=== PATIENT | male | born 1950 | race Caucasian/White ===

== ENCOUNTER 2017-08-09 21:30 | Inpatient (IN) ==
[2017-08-09] MEDS ORDERED: Nitroglycerin 0.4 MG TAB.SUBL SL ONE (21:41)
--- NOTE | 2017-08-09 21:41 | Emergency Department Note ---
Disposition Clinical Impression: Chest pain Qualifiers: Chest pain type: unspecified Qualified Code(s): R07.9 - Chest pain, unspecified Disposition: Admitted As Inpatient Condition: Good [facility]errals: [facility] [Primary Care Provider[facility] - Forms: ED Satisfaction Letter Time of Disposition: 23:42 Chest Pain HPI - General Chief Complaint: ED Chest Pain Stated Complaint: chest pain Time Seen by Provider: 08/09/17 21:37 Source: patient, EMS Mode of arrival: EMS Limitations: no limitations Vital Signs Reviewed: Yes Nursing Notes Reviewed: Yes - History of Present Illness HPI Narrative: Patient is a 66-year-old male with past medical history of several previous cardiac stents, 2 previous ME, most recent stent was 30 days ago at [facility]. He also has a history of hypertension, diabetes, high cholesterol. Denies any smoking history. Presents today via EMS due to chest pain. He says that the chest pain started about 45 minutes ago, described as a dull ache in the center of his chest with no radiation. It started suddenly while at rest. was a 6/10 initially, increased to a 9/10 in the squad, and then was given nitroglycerin and it dropped back to a 6/10. He was also given aspirin 325mg. Denies any associated nausea, vomiting, sweating. Also admits to shortness of breath. Denies any worsening of the chest pain with deep breath in and out. Denies any unilateral leg swelling or calf pain, no other recent surgeries except for stent placement a month ago. No previous history of DVT or PE. - Related Data Allergies Allergy/AdvReac Type Severity Reaction Status Date / Time codeine Allergy Anaphylaxis Verified 08/09/17 21:58 IV dye AdvReac Vomiting Uncoded 08/09/17 21:58 All systems ED: reviewed and negative except as stated. Constitutional: Denies: fever Cardiovascular: Reports: chest pain Respiratory: Reports: dyspnea. Denies: cough, wheezes Gastrointestinal: Denies: abdominal pain, nausea, vomiting, diarrhea Genitourinary: Denies: urgency, dysuria, frequency, hematuria Neurological: Denies: weakness, numbness, paresthesias Chest Pain PMH - Past Medical History Medical history: Reports: diabetes, hyperlipidemia, hypertension, myocardial infarction, other Physical Exam - General Limitations: no limitations General appearance: alert, in no apparent distress - Head Head exam: atraumatic, normocephalic, normal inspection - Eye Eye exam: Present: normal appearance, PERRL, EOMI - ENT ENT exam: normal exam, normal oropharynx, mucous membranes moist - Neck Neck exam: Present: normal inspection, full ROM, trachea midline - Chest Chest inspection: Present: normal inspection, symmetric chest wall rise. Absent : tenderness, rash - Respiratory Respiratory exam: Present: normal lung sounds bilaterally - Cardiovascular Cardiovascular exam: Present: regular rate, normal rhythm, normal heart sounds - Abdominal Exam Abdominal exam: Present: soft, Non-Tender. Absent: tenderness, distention, guarding, rebound, rigidity - Extremities Exam Extremities exam: Present: normal inspection, full ROM. Absent: tenderness, pedal edema - Neurological Exam Neurological exam: Present: alert, oriented X3 - Psychiatric Psychiatric exam: Present: normal affect, normal mood - Skin Skin exam: Present: warm, dry, intact, normal color Course Course Narrative: Patient had no reproducible tenderness of the chest. Lungs were clear to auscultation, abdomen soft and nontender. No major swelling or calf pain of lower extremities. Patient is very high risk for ACS at this time. We will give the patient additional nitroglycerin and, if this improves his pain, we will start a nitro drip. Also obtain EKG, chest x-ray, troponin level. We will recommend admission even if workup is negative due to extensive cardiac history and recent stent placement. 23:25 troponin negative. No acute EKG changes. Chest x-ray negative for any acute cardiopulmonary process. Discussed results and case with the patient and recommendation for admission for trending troponins. He has requested that he continue his care here instead of [facility]. 23:41 hospitalist requested that I speak with cardiology. Contacted Dr. Hernandez , discussed presentation, symptoms, imaging results with him. He requested that we start the patient on heparin and he will act as a consult for the patient in the morning. No other intervention at this time. No contraindications to starting heparin at this time. Chest X-Ray 08/09/17 21:41 IMPRESSION: No acute cardiopulmonary disease. Mild dependent left basilar atelectasis. D/ / Naldo Wallace MD / Naldo Wallace MD Interpreting Provider: Naldo Wallace MD Vital Signs Temperature 97.8 F 08/09/17 21:33 Pulse Rate 67 08/09/17 21:33 Respiratory Rate 16 08/09/17 21:33 Blood Pressure 151/108 08/09/17 21:33 O2 Sat by Pulse Oximetry 99 08/09/17 21:33 Temperature 97.8 F 08/09/17 21:33 Pulse Rate 64 08/09/17 21:58 Respiratory Rate 16 08/09/17 21:58 Blood Pressure 146/62 08/09/17 21:58 O2 Sat by Pulse Oximetry 98 08/09/17 21:58 Oxygen Delivery Oxygen Delivery Room Air Chest Pain - MDM Narrative Medical decision making narrative: Patient had no reproducible tenderness of the chest. Lungs were clear to auscultation, abdomen soft and nontender. No major swelling or calf pain of lower extremities. Patient is very high risk for ACS at this time. We will give the patient additional nitroglycerin and, if this improves his pain, we will start a nitro drip. Also obtain EKG, chest x-ray, troponin level. We will recommend admission even if workup is negative due to extensive cardiac history and recent stent placement. 23:25 troponin negative. No acute EKG changes. Chest x-ray negative for any acute cardiopulmonary process. Discussed results and case with the patient and recommendation for admission for trending troponins. He has requested that he continue his care here instead of [facility]. 23:41 hospitalist requested that I speak with cardiology. Contacted Dr. Hernandez , discussed presentation, symptoms, imaging results with him. He requested that we start the patient on heparin and he will act as a consult for the patient in the morning. No other intervention at this time. No contraindications to starting heparin at this time. - Medical Records Medical records reviewed: Yes I reviewed the patient's medical records. - Lab Data Lab results reviewed: Yes I reviewed the patient's lab results. Result diagrams: 08/09/17 21:56 08/09/17 21:56 Lab Results 08/09/17 08/09/17 08/09/17 Range/Units 21:56 21:56 21:56 WBC 6.9 (4.3-11.1) K/mcL RBC 3.63 L (4.19-5.50) M/mcL Hgb 10.8 L (12.9-16.9) g/dL Hct 32.6 L (37.5-50.1) % MCV 89.8 (83.0-100.0) fL MCH 29.8 (28.0-33.3) pg MCHC 33.1 (31.6-35.5) g/dL RDW 13.8 (11.5-14.5) % Plt Count 218 (140-400) K/mcL MPV 10.8 (9.4-12.4) fL Immature Gran % 0.3 (0-4) % Seg Neutrophils % 65.1 % Lymphocytes % 20.9 % Monocytes % 8.4 % Eosinophils % 4.9 % Basophils % 0.4 % Neutrophils # 4.5 (1.6-8.9) K/mcL Lymphocytes # 1.4 (0.6-4.6) K/mcL Monocytes # 0.6 (0.0-1.3) K/mcL Eosinophils # 0.3 (0.0-0.6) K/mcL Basophils # 0.0 (0.0-0.2) K/mcL PT 11.2 (9.4-12.1) Seconds INR 1.0 APTT 30.4 (26.0-36.0) Seconds Sodium 134 L (136-145) mEq/L Potassium 4.0 (3.5-5.1) mEq/L Chloride 102 (98-107) mEq/L Carbon Dioxide 22 L (23-29) mEq/L BUN 15 (8-23) mg/dL Creatinine 0.80 (0.70-1.30) mg/dL Est GFR ( Amer) > 60 (> 60) Est GFR (Non-Af Amer) > 60 (> 60) BUN/Creatinine Ratio 19 (6-26) Glucose 339 H (70-105) mg/dL Calculated Osmolality 292 (280-300) Calcium 8.5 L (8.6-10.3) mg/dL Troponin I < 0.03 (< 0.04) ng/mL - Radiology Data Radiology results reviewed: Yes I reviewed the patient's radiology results. - EKG Data EKG attestation: Yes I reviewed and interpreted this EKG. EKG results narrative: 08/09/2017 at 21:35. Normal sinus rhythm. Rate 68. MT 148. QRS 94. QTC 398. Normal axis. No acute ST elevation or depression. No previous EKG for comparison Heart Score - Score History: Highly Suspicious EKG: Normal Age: Greater than 65 Risk Factors: Equal/Greater than 3 risk factor or history of atherosclerotic disease Troponin: Less than normal limit HEART Score Total: 6 S.B.A.R. - Elham.[email or web address] Situation: Demographics, MOA Background: Presenting Complaint, Relevant PMH, Meds, & Allergies Assessment: Vital Signs, Course and respsone to treatment, Exam Concerns, Patient/Family Expectation, Pertinant Lab Results Recommendation: Barrier(s) to disposition, Recommendation based on pending studies, treatments, or consults S.B.A.Neelima Report Given to: Dr. Mau Colindres Repor Time: 23:42
--- NOTE | 2017-08-09 21:56 | Emergency Department Note ---
START Narrative - START START: I examined this patient and my medical decision-making was reviewed with the Resident Physician. I agree with the documented findings, disposition and treatment plan as described except to the extent set forth below. 66-year-old male presents emergency room for chest pain. Started 45 minutes prior to arrival. He follows with [facility]. History of 7 stents. EKG is unremarkable. We are awaiting lab work. Possible admission versus transfer. Patient states he might like to go home if all his lab work is unremarkable. We will discuss with him at that time. His vitals are stable.
[2017-08-09 22:06] LABS: Basophils % 0.4 %; Eosinophils # 0.3 K/mcL (0.0-0.6); Eosinophils % 4.9 %; Hematocrit 32.6 % (37.5-50.1); Hemoglobin 10.8 g/dL (12.9-16.9); Immature Granulocytes % 0.3 % (0-4); Lymphocytes # 1.4 K/mcL (0.6-4.6); Lymphocytes % 20.9 %; Mean Corpuscular HGB Conc 33.1 g/dL (31.6-35.5); Mean Corpuscular Hemoglobin 29.8 pg (28.0-33.3); Mean Corpuscular Volume 89.8 fL (83.0-100.0); Mean Platelet Volume 10.8 fL (9.4-12.4); Monocytes # 0.6 K/mcL (0.0-1.3); Monocytes % 8.4 %; Neutrophils # 4.5 K/mcL (1.6-8.9); Platelet Count 218 K/mcL (140-400); Red Blood Count 3.63 M/mcL (4.19-5.50); Red Cell Distribution Width 13.8 % (11.5-14.5); Segmented Neutrophils % 65.1 %
[2017-08-09 22:12] LABS: Prothrombin Time 11.2 Seconds (9.4-12.1)
[2017-08-09 22:15] LABS: Activated Partial Thrombo Time 30.4 Seconds (26.0-36.0)
[2017-08-09 22:27] LABS: BUN/Creatinine Ratio 19 (6-26); Blood Urea Nitrogen 15 mg/dL (8-23); Calcium 8.5 mg/dL (8.6-10.3); Carbon Dioxide 22 mEq/L (23-29); Chloride 102 mEq/L (98-107); Glucose 339 mg/dL (70-105); Osmolality,Calculated 292 (280-300); Sodium 134 mEq/L (136-145); Troponin I < 0.03 ng/mL (< 0.04); eGFR For African Americans > 60 (> 60); eGFR For Non-African Americans > 60 (> 60)
[2017-08-09] MEDS ORDERED: *HR* FentaNYL (PF) 100 MCG/2 ML VIAL IVP ONE (23:18)
[2017-08-09] MEDS ORDERED: *HR* Heparin 5,000 UNIT/ML VIAL IVP PRN ×2 (23:40)
[2017-08-09] MEDS ORDERED: *HR* Heparin 5,000 UNIT/ML VIAL IVP ONE (23:40)
[2017-08-09] MEDS ORDERED: Heparin 25,000 UNIT/500 ML D5W 25,000 UNIT/500 ML BAG IVC SCH (23:45)
[2017-08-09] MEDS ORDERED: Acetaminophen 325 MG TABLET PO PRN (23:46)
[2017-08-09] MEDS ORDERED: Naloxone 0.4 MG/ML INJ IVP PRN (23:46)
--- NOTE | 2017-08-09 23:48 | Internal Med History&Physical ---
Date of Encounter: 08/10/17 Time of Encounter: 23:42 Internal Medicine - H&P: HPI Chief complaint: Chest pain Admitted From: Emergency Dept Plans for Post Hospital Care: Home History of present illness: Mr. Taylor is a 66 year old male with past medical history of coronary artery disease with multiple stents (tells me he has 19-20 stents placed at different times) most recent stent was 40 days ago at [facility]. He also has a history of hypertension, diabetes, high cholesterol. Denies any smoking history. He presented to the ED today via EMS due to chest pain. He says that the chest pain started about 45 minutes ago prior to arrival here, described as a dull ache in the center of his chest with no radiation. It started suddenly while at rest. was a 6/10 initially, increased to a 9/10 later on in route to the hospital, and then was given nitroglycerin and it dropped back to a 6/10. He was also given aspirin 325mg. reports associated shortness of breath. Denies any associated nausea, vomiting, sweating. Says this is similar to chest pain he has had previously when he needed stents. He says he was at [facility] 40 days ago and a stent was placed. 10 days later he went again with and had another [facility] and no stents were placed that time. He saw different cardiologists over the years. Recently he says he saw a Theatre Instructor here in [place] but he couldnt tell me who. When I mentioned a list of our cardiologists' names, he said Dr. Hernandez sounds like the aircraft engine installer he saw recently. In the emergency department the patient was hemodynamically stable. EKG with no acute ST or T-wave changes. Chest x-ray with no acute findings. First set of cardiac enzymes are not elevated. Laboratory workup with hemoglobin of 10.8 with nothing to compare to in the past. Patient denies any bleeding. Glucose was 339. Patient was given nitroglycerin with some relief again in the ED. Was also given fentanyl. Cardiology were consulted and the ED and recommended a heparin drip and the patient will be seen by them in the morning. Denies headache, blurry vision, abdominal pain, constipation, diarrhea , urinary symptoms, or neurological symptoms. Past Med Surg Social Fam HX - Past Medical History Medical history: diabetes, hyperlipidemia, hypertension, myocardial infarction, other Psychiatric history: no psych history - Social History Smoking Status: Never smoker Smokeless Tobacco Status: No Alcohol use: none Drug use: none Internal Medicine - H&P: Meds 3 Allergy/AdvReac Type Severity Reaction Status Date / Time codeine Allergy Anaphylaxis Verified 08/09/17 21:58 heparin Allergy Hives Verified 08/09/17 23:54 IV dye AdvReac Vomiting Uncoded 08/09/17 21:58 All Systems PM: A 10-system review of systems was performed and is negative for pertinent findings except as documented above in the HPI. Review of systems: All systems reviewed are negative except for as mentioned above - Constitutional Vitals: Temp Pulse Resp BP Pulse Ox 97.8 F 64 16 146/62 98 08/09/17 21:33 08/09/17 21:58 08/09/17 21:58 08/09/17 21:58 08/09/17 21:58 Exam: GEN: NAD HEENT: AT, NC, No cyanosis, oral mucosa is moist, No JVD Lymphatics: No lymphadenoapthy Eyes: Extrocular muscles intact, anicteric CVS:RRR. S1, S2, No m/r/g RESP: CTAB ABD: Soft, NT, ND, +BS EXT: No edema, No rashes, 2+ DP NEURO: Nonfocal, CN II-XII intact, No focal motor or sensory deficits Psych: Cooperative, Not anxious or depressed Internal Med - H&P Results - Labs CBC & Chem 7: 08/09/17 21:56 08/09/17 21:56 Labs: Short CBC 08/09/17 Range/Units 21:56 WBC 6.9 (4.3-11.1) K/mcL Hgb 10.8 L (12.9-16.9) g/dL Hct 32.6 L (37.5-50.1) % Plt Count 218 (140-400) K/mcL Neutrophils # 4.5 (1.6-8.9) K/mcL BMP 08/09/17 21:56 Sodium 134 L Potassium 4.0 Chloride 102 Carbon Dioxide 22 L BUN 15 Creatinine 0.80 Glucose 339 H Calcium 8.5 L Cardiac Enzymes 08/09/17 Range/Units 21:56 Troponin I < 0.03 (< 0.04) ng/mL - Impressions ITS Impressions Chest X-Ray 08/09/17 21:41 IMPRESSION: No acute cardiopulmonary disease. Mild dependent left basilar atelectasis. D/ / Naldo Wallace MD / Naldo Wallace MD Interpreting Provider: Naldo Wallace MD - Assessment and plan (1) Unstable angina Current Visit: Yes Status: Acute Assessment and plan: Patient is with chest pain about 30 days after recent stent placement. I have asked the ED staff to consult with cardiology in the ED as the patient does not want to be transferred to [facility] for this. The ED staff told me that they spoke to Dr. Hernandez who recommended a heparin drip and they will see the patient in the morning for further cardiac recommendations. Patient says he breaks into hives on heparin so will put him on Lovenox. In the meantime will order nitroglycerin SL prn and if needed we will do a nitro drip. Resume cardiac meds. Telemetry. Trend cardiac enzymes. Check A1c and lipid panel. Nothing by mouth after midnight. Obtain records from [facility]. (2) CAD (coronary artery disease) Current Visit: Yes Status: Acute Assessment and plan: Resume all cardiac meds. Obtain records from [facility] Qualifiers: Coronary Disease-Associated Artery/Lesion type: [place] artery [place] vs. transplanted heart: [place] heart Associated angina: with unstable angina Qualified Code(s): I25.110 - Atherosclerotic heart disease of [place] coronary artery with unstable angina pectoris (3) Diabetes mellitus Current Visit: Yes Status: Acute Assessment and plan: insulin sliding scale. Accu-Cheks. Qualifiers: Diabetes mellitus type: type 2 Diabetes mellitus fpc insulin use: without exterminator use Diabetes mellitus complication status: without complication Qualified Code(s): E11.9 - Type 2 diabetes mellitus without complications (4) HTN (hypertension) Current Visit: Yes Status: Acute Assessment and plan: Resume home antihypertensive Qualifiers: Hypertension type: essential hypertension Qualified Code(s): I10 - Essential (primary) hypertension (5) DVT prophylaxis Current Visit: Yes Status: Acute Assessment and plan: Lovenox - Time Spent With Patient Total time spent is greater than 50% in coordination of care (as documented) at patient's floor/unit and/or counseling patient:
[2017-08-09] MEDS ORDERED: *HR* Dextrose 50 % in Water (Syg) 50 ML SYRINGE IVP PRN (23:51)
[2017-08-09] MEDS ORDERED: Dextrose Gel 15 GM/37.5 ML TUBE PO PRN ×2 (23:51)
[2017-08-09] MEDS ORDERED: D5% in Water 1,000 ML IVC PRN (23:51)
[2017-08-10] MEDS ORDERED: Insulin LISPRO 300 UNITS/3 ML VIAL SQ SCH
[2017-08-10] MEDS ORDERED: *HR* Enoxaparin 120 MG/0.8 ML SYRINGE SQ STA (00:06)
[2017-08-10 04:12] VITALS: BP 148/64
[2017-08-10 04:39] LABS: Basophils % 0.5 %; Eosinophils # 0.4 K/mcL (0.0-0.6); Eosinophils % 5.6 %; Hematocrit 33.3 % (37.5-50.1); Hemoglobin 10.9 g/dL (12.9-16.9); Immature Granulocytes % 0.2 % (0-4); Lymphocytes # 1.6 K/mcL (0.6-4.6); Lymphocytes % 24.9 %; Mean Corpuscular HGB Conc 32.7 g/dL (31.6-35.5); Mean Corpuscular Hemoglobin 29.3 pg (28.0-33.3); Mean Corpuscular Volume 89.5 fL (83.0-100.0); Mean Platelet Volume 10.5 fL (9.4-12.4); Monocytes # 0.7 K/mcL (0.0-1.3); Monocytes % 10.7 %; Neutrophils # 3.7 K/mcL (1.6-8.9); Platelet Count 219 K/mcL (140-400); Red Blood Count 3.72 M/mcL (4.19-5.50); Red Cell Distribution Width 13.9 % (11.5-14.5); Segmented Neutrophils % 58.1 %
--- NOTE | 2017-08-10 04:42 | Event Note ---
Date of Encounter: 08/10/17 Time of Encounter: 04:40 I have asked the nursing staff to update the patient's med list so I can restart them. He is on cardiac meds including aspirin, Plavix, Ranexa, Imdur, beta emmanuel. He does not know his dosages for some of these meds. Those will need to be confirmed by pharmacy in the morning and restarted.
[2017-08-10 05:00] LABS: BUN/Creatinine Ratio 19 (6-26); Blood Urea Nitrogen 13 mg/dL (8-23); Calcium 8.7 mg/dL (8.6-10.3); Chloride 103 mEq/L (98-107); Cholesterol 131 mg/dL (< 200); Glucose 167 mg/dL (70-105); HDL Cholesterol 33 mg/dL (40-59); LDL Cholesterol,Calculated 45 mg/dL (0-99); Magnesium 1.8 mg/dL (1.6-2.6); Osmolality,Calculated 290 (280-300); Potassium 4.1 mEq/L (3.5-5.1); Sodium 138 mEq/L (136-145); Triglycerides 265 mg/dL (< 150); eGFR For African Americans > 60 (> 60); eGFR For Non-African Americans > 60 (> 60)
--- NOTE | 2017-08-10 05:52 | Event Note ---
Date of Encounter: 08/10/17 Time of Encounter: 05:50 Patient is refusing heparin drip due to hives. Switched him to Lovenox and he does not want it saying it causes dizziness and possibly hives. I spoke to Dr. Hernandez about options for Arixtra or Argatroban and he asked me about his trops and I told him the patient has 2 sets or trops not elevated. Dr. Hernandez said not to start him on anything and he will be seeing the patient in the morning.
[2017-08-10] MEDS ORDERED: Famotidine 20 MG TABLET PO SCH (07:30)
--- NOTE | 2017-08-10 07:57 | Event Note ---
Date of Encounter: 08/10/17 Time of Encounter: 07:56 Looks like patient left AMA before being seen by me.
[2017-08-10 08:51] LABS: Estimated Average Glucose 232 mg/dl; Hemoglobin A1C 9.7 %
[2017-08-10] MEDS ORDERED: Gabapentin 300 MG CAPSULE PO SCH (09:00)
[2017-08-10] MEDS ORDERED: Aspirin 325 MG TABLET PO SCH (09:00)
[2017-08-10] MEDS ORDERED: Gabapentin 400 MG CAPSULE PO SCH (21:00)
[2017-08-11 01:43] LABS: Carbon Dioxide 26 mEq/L (23-29)
--- NOTE | 2017-08-11 22:49 | Electrocardiograph Report ---
[facility] Test Date: 2017-08-09 Pat Name: Nando Taylor Department: 103 Room: 2SH22 Gender: M Scheduling Agent: CHIDI : [id number] Requested By: Delfin Momin Order Number: [id number] Reading MD: Barb Sidhu Measurements Intervals [place] Rate: 68 P: 41 TX: 148 QRS: 17 QRSD: 94 T: 19 QT: 381 QTc: 398 Interpretive Statements SINUS RHYTHM PROBABLE INFERIOR MYOCARDIAL INFARCTION [35 ms Q WAVE IN II/aVF], PROBABLY OLD Electronically Signed On 08-11-2017 22:48:18 EDT by Barb Sidhu
--- NOTE | 2017-08-15 17:32 | Discharge Summary ---
Date of Encounter: 08/09/17 Time of Encounter: 06:35 - Discharge Diagnosis (1) Unstable angina Priority: Primary Status: Acute (2) CAD (coronary artery disease) Priority: Secondary Status: Acute Qualifiers: Coronary Disease-Associated Artery/Lesion type: [place] artery [place] vs. transplanted heart: [place] heart Associated angina: with unstable angina Qualified Code(s): I25.110 - Atherosclerotic heart disease of [place] coronary artery with unstable angina pectoris (3) Diabetes mellitus Priority: Secondary Status: Acute Qualifiers: Diabetes mellitus type: type 2 Diabetes mellitus mcc insulin use: without mcc use Diabetes mellitus complication status: without complication Qualified Code(s): E11.9 - Type 2 diabetes mellitus without complications (4) HTN (hypertension) Priority: Secondary Status: Acute Qualifiers: Hypertension type: essential hypertension Qualified Code(s): I10 - Essential (primary) hypertension Hospital course: Mr. Taylor is a 66 year old male with past medical history of coronary artery disease with multiple stents (tells me he has 19-20 stents placed at different times) most recent stent was 40 days ago at [facility]. He also has a history of hypertension, diabetes, high cholesterol. Denies any smoking history. He presented to the ED via EMS due to chest pain. He stated that the chest pain started about 45 minutes prior to arrival here, described as a dull ache in the center of his chest with no radiation. It started suddenly while at rest. was a 6/10 initially, increased to a 9/10 later on in route to the hospital, and then was given nitroglycerin and it dropped back to a 6/10. He was also given aspirin 325mg. He reported associated shortness of breath. He said this is similar to chest pain he has had previously when he needed stents. He stated that he was at [facility] 40 days ago and a stent was placed. 10 days later he went again with and had another [facility] done and no stents were placed that time. He saw different cardiologists over the years. Recently he says he saw a Frame Hand here in [place] but he couldnt tell me who. In the emergency department the patient was hemodynamically stable. EKG with no acute ST or T-wave changes. Chest x-ray with no acute findings. First set of cardiac enzymes are not elevated. Laboratory workup with hemoglobin of 10.8 with nothing to compare to in the past. Patient was given nitroglycerin with some relief again in the ED. Was also given fentanyl. Cardiology were consulted and the ED and recommended a heparin drip and the patient will be seen by them in the morning. Unfortunately the patient would not allow us to start a heparin drip stating he gets into hives from them. We tried ordering lovenox and he said something similar. He was not compliant with staff. He threatened to leave throughout his stay. He had not made it up to his room yet and he was threatening to leave. Eventually he left against medical advice around 6:30 am the same day of admission from the ED. He was explained the risks of leaving including . - Time Spent with Patient Total time spent providing and/or coordinating discharge services: - Discharge Medications Home Medications: Padmaien HS PRN 08/10/17 [History] Aspirin 325 mg PO DAILY 08/10/17 [History] Clopidogrel [Plavix] 75 mg PO DAILY 08/10/17 [History] Esomeprazole Magnesium [Nexium] 40 mg PO BID 08/10/17 [History] Famotidine [Pepcid] 20 mg PO BID 08/10/17 [History] Gabapentin [Neurontin] 1,200 mg PO HS 08/10/17 [History] Gabapentin [Neurontin] 600 mg PO BID 08/10/17 [History] Imdur 08/10/17 [History] Insulin Glargine [Lantus] 55 unit SQ BID 08/10/17 [History] Insulin LISPRO [HumaLOG] 18 units SQ TIDWM 08/10/17 [History] Lipitor 08/10/17 [History] Losartan [Cozaar] 25 mg PO DAILY 08/10/17 [History] Metoprolol Succinate 08/10/17 [History] Ranexa 08/10/17 [History] Allergies/Adverse Reactions: 3 Allergy/AdvReac Type Severity Reaction Status Date / Time codeine Allergy Anaphylaxis Verified 08/09/17 21:58 heparin Allergy Hives Verified 08/09/17 23:54 IV dye AdvReac Vomiting Uncoded 08/09/17 21:58 Date of admission: 08/09/17 23:46 [facility] care physician: [facility] - Constitutional Vitals: Temp Pulse Resp BP Pulse Ox 97.8 F 54 15 148/64 98 08/10/17 04:11 08/10/17 04:11 08/10/17 04:11 08/10/17 04:11 08/10/17 04:11 Exam: GEN: NAD HEENT: AT, NC, No cyanosis, oral mucosa is moist, No JVD Lymphatics: No lymphadenoapthy Eyes: Extrocular muscles intact, anicteric CVS:RRR. S1, S2, No m/r/g RESP: CTAB ABD: Soft, NT, ND, +BS EXT: No edema, No rashes, 2+ DP NEURO: Nonfocal, CN II-XII intact, No focal motor or sensory deficits - Patient Status Disposition: Left Against Medical Advice Condition: Good - Discharge Instructions Follow Up With: [facility] [Primary Care Provider] -
== END 2017-08-10 05:54 | disposition left against medical advice (07) | DRG 303 ==
LOC: EMEROO 21:30 → 2SOUTHHOLD 21:30
PROVIDERS: ADMIT Internal Medicine; ATTEND Registered Nurse

== ENCOUNTER 2018-04-21 20:17 | Inpatient (IN) ==
--- NOTE | 2018-04-21 20:36 | Emergency Department Note ---
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 transplanted heart: [place] heart Associated angina: with unspecified angina Qualified Code(s): I25.119 - Atherosclerotic heart disease of [place] coronary artery with unspecified angina pectoris Disposition: Admitted As Inpatient Condition: Fair Chest Pain HPI - General Stated Complaint: chest pain Time Seen by Provider: 04/21/18 20:20 Vital Signs Reviewed: Yes Nursing Notes Reviewed: Yes - History of Present Illness HPI Narrative: 67-year-old male with history of multiple stents and 2 MIs in the past who presents with the complaint of chest pain which radiates into bilateral arms. The patient states the pain started approximately 45 minutes prior to arrival. He states the pain is a constant pressure in the middle of his chest and radiates into bilateral arms with tingling. He states in route he was given 325 of aspirin as well as nitroglycerin with only slight improvement in his pain. The pain is not worsened by anything in particular. He does admit to slight shortness of breath but denies any diaphoresis or dizziness. He otherwise denies any fever, chills, nausea, vomiting, diarrhea, dysuria, hematuria, back pain. - Related Data Home Medications Medication Instructions Recorded Confirmed Aspirin 325 mg PO DAILY 04/21/18 04/21/18 Atorvastatin [Lipitor] 80 mg PO HS 04/21/18 04/21/18 Baclofen 5 mg PO TID 04/21/18 04/21/18 Cetirizine HCl [24Hour Allergy] 10 mg PO DAILY 04/21/18 04/21/18 Cholecalciferol (D-3) [Vitamin D] 10,000 unit PO DAILY 04/21/18 04/21/18 Cyanocobalamin (Vitamin B-12) 1,000 mcg PO DAILY 04/21/18 04/21/18 [Vitamin B12] Gabapentin [Neurontin] 1,200 mg PO BID 04/21/18 04/21/18 Hydrocodone/Acetaminophen [[place] 1 tab PO BID PRN 04/21/18 04/21/18 5-325 Tablet] Insulin ASPART [NovoLOG] 18 - 25 unit SQ TIDWM 04/21/18 04/21/18 Insulin Glargine,Hum.rec.anlog 55 unit SQ Q12H 04/21/18 04/21/18 [Lantus Solostar] Isosorbide MONOnitrate (24 HR) 30 mg PO BID 04/21/18 04/21/18 [Imdur] Losartan [Cozaar] 25 mg PO DAILY 04/21/18 04/21/18 Mag Hydrox/Al Hydrox/Simeth 15 ml PO Q6HR PRN 04/21/18 04/21/18 [Maalox] Magnesium Oxide [Magnesium] 400 mg PO DAILY 04/21/18 04/21/18 Metoprolol Succinate [Toprol Xl] 50 mg PO DAILY 04/21/18 04/21/18 Nitroglycerin [Nitrostat] 0.4 mg SL AD PRN 04/21/18 04/21/18 [place]-3/Dha/Epa/Fish Oil [Fish Oil 2 cap PO DAILY 04/21/18 04/21/18 1,000 mg Softgel] Pantoprazole Sodium 40 mg PO DAILY 04/21/18 04/21/18 Prasugrel [Effient] 10 mg PO DAILY 04/21/18 04/21/18 Ranolazine [Ranexa] 500 mg PO BID 04/21/18 04/21/18 raNITIdine HCl [Zantac] 150 mg PO BID 04/21/18 04/21/18 Allergies Allergy/AdvReac Type Severity Reaction Status Date / Time codeine Allergy Anaphylaxis Verified 04/21/18 20:37 heparin Allergy Hives Verified 04/21/18 20:37 Iodinated Contrast- Oral and AdvReac Vomiting Verified 04/21/18 20:38 IV Dye IV dye AdvReac Vomiting Uncoded 08/09/17 21:58 All systems ED: reviewed and negative except as stated. Review of Systems: As Per HPI Constitutional: Denies: fever, chills, weakness Eyes: Denies: eye pain, eye discharge, vision change ENT ED: Denies: ear pain, throat pain, dental pain, hearing loss, epistaxis, congestion, dysphagia Cardiovascular: Reports: chest pain, dyspnea on exertion. Denies: palpitations, orthopnea, edema, syncope, paroxysmal nocturnal dyspnea Respiratory: Reports: dyspnea. Denies: cough, wheezes, hemoptysis, stridor Gastrointestinal: Denies: abdominal pain, nausea, vomiting, diarrhea, constipation Genitourinary: Denies: urgency, dysuria, frequency, hematuria Musculoskeletal: Denies: back pain, neck pain, joint swelling Integumentary: Denies: rash, abrasion, lesions, change in hair/nails Neurological: Denies: headache, weakness, numbness, paresthesias, confusion, abnormal gait, vertigo Psychiatric: Denies: anxiety, depression, suicidal thoughts, homicidal thoughts, auditory hallucinations, visual hallucinations Endocrine: Denies: fatigue Hematological/Lymphatic: Denies: easy bleeding, easy bruising Chest Pain PMH - Past Medical History Medical history: Reports: diabetes, hyperlipidemia, hypertension, myocardial infarction, other (CAD) Psychiatric history: Reports: no psych history - Social History Smoking Status: Never smoker Alcohol use: Reports: none Drug use: Reports: none Physical Exam - General Limitations: no limitations General appearance: alert, in no apparent distress, obese - Head Head exam: atraumatic, normocephalic - Eye Eye exam: Present: normal appearance, PERRL, EOMI - ENT ENT exam: normal exam, normal oropharynx, mucous membranes moist - Neck Neck exam: Present: normal inspection, full ROM, trachea midline. Absent: tenderness - Chest Chest inspection: Present: normal inspection, symmetric chest wall rise. Absent: tenderness - Respiratory Respiratory exam: Present: normal lung sounds bilaterally. Absent: respiratory distress, wheezes, stridor - Cardiovascular Cardiovascular exam: Present: regular rate, normal rhythm, normal heart sounds. Absent: bradycardia, tachycardia - Abdominal Exam Abdominal exam: Present: soft, Non-Tender, normal bowel sounds. Absent: distention, guarding, rebound, rigidity Course - Reevaluation(s) Reevaluation #1: Discussed case with credit operations specialist who agrees with plan to admit the patient. Time: 22:55 Vital Signs Temperature 98.4 F 04/21/18 20:30 Pulse Rate 76 04/21/18 20:30 Respiratory Rate 20 04/21/18 20:30 Blood Pressure 149/72 04/21/18 20:30 O2 Sat by Pulse Oximetry 100 04/21/18 20:30 Temperature 97.8 F 04/22/18 01:23 Pulse Rate 80 04/22/18 01:23 Respiratory Rate 17 04/22/18 01:23 Blood Pressure 155/75 04/22/18 01:23 O2 Sat by Pulse Oximetry 96 04/22/18 01:23 Oxygen Delivery Oxygen Delivery Room Air Chest Pain - MDM Narrative Medical decision making narrative: 67-year-old male with history of multiple stents resenting with chest pain similar to previous episodes. Cardiac workup revealed no EKG changes initially but does have elevated troponin of 0.67. The patient continued had chest pain through nitroglycerin therefore nitro drip initiated. The patient was given aspirin 325 in route. Discussed the case with cardiology who believes that the patient does not need a loading dose of Effient as he is currently compliant. They do recommend heparin dosing that the patient is allergic and therefore will begin him on Lovenox. Otherwise the patient has been hemodynamically stable here in the emergency department. Repeat EKGs shows slight changes in T-wave morphology but no evidence of ST elevation. The patient initially requested transfer to [facility] as this is where he has had his previous stents placed. [facility] was contacted but did not have any cardiac beds therefore the patient agreed to be admitted to this facility. Discussed the case with hospitalist product distribution specialist who agrees with plan for admission. Patient agrees with and understands course of treatment plan including plan for admission. All questions answered. - Medical Records Medical records reviewed: Yes I reviewed the patient's medical records. - Lab Data Lab results reviewed: Yes I reviewed the patient's lab results. Result diagrams: 04/21/18 20:41 04/21/18 20:41 Lab Results 04/21/18 04/21/18 04/21/18 Range/Units 20:41 20:41 20:41 WBC 6.4 (4.3-11.1) K/mcL RBC 3.70 L (4.19-5.50) M/mcL Hgb 10.8 L (12.9-16.9) g/dL Hct 32.6 L (37.5-50.1) % MCV 88.1 (83.0-100.0) fL MCH 29.2 (28.0-33.3) pg MCHC 33.1 (31.6-35.5) g/dL RDW 14.3 (11.5-14.5) % Plt Count 193 (140-400) K/mcL MPV 11.1 (9.4-12.4) fL Immature Gran % 0.3 (0-4) % Seg Neutrophils % 65.4 % Lymphocytes % 19.1 % Monocytes % 10.9 % Eosinophils % 3.7 % Basophils % 0.6 % Neutrophils # 4.2 (1.6-8.9) K/mcL Lymphocytes # 1.2 (0.6-4.6) K/mcL Monocytes # 0.7 (0.0-1.3) K/mcL Eosinophils # 0.2 (0.0-0.6) K/mcL Basophils # 0.0 (0.0-0.2) K/mcL PT 10.7 (9.4-12.1) Seconds INR 1.0 APTT 32.9 (26.0-36.0) Seconds Sodium 138 (136-145) mEq/L Potassium 4.3 (3.5-5.1) mEq/L Chloride 102 (98-107) mEq/L Carbon Dioxide 27 (23-29) mEq/L BUN 13 (8-23) mg/dL Creatinine 0.87 (0.70-1.30) mg/dL Est GFR ( Amer) > 60 (> 60) Est GFR (Non-Af Amer) > 60 (> 60) BUN/Creatinine Ratio 15 (6-26) Glucose 408 H (70-105) mg/dL Calculated Osmolality 303 H (280-300) Calcium 9.1 (8.6-10.3) mg/dL Troponin I 0.79 H* (< 0.04) ng/mL - Radiology Data Radiology results reviewed: Yes I reviewed the patient's radiology results. Chest X-Ray 04/21/18 20:33 IMPRESSION: No acute findings. D/ / Bartolo Hammer MD / Bartolo Hammer MD Interpreting Provider: Bartolo Hammer MD - EKG Data EKG attestation: Yes I reviewed and interpreted this EKG. EKG results narrative: EKG #1 sinus rhythm with a rate of 80. Electrical indices within normal limits. [place] is normal. No acute ST or T-wave abnormalities appreciated. Normal EKG. EKG #2 sinus rhythm with a rate of 85. Electrical indices within normal limits. [place] is normal. There has been interval change with mild ST depression in the lateral leads with T-wave inversion in lead aVL consistent with lateral wall and high lateral wall ischemia. Attestation Statement - Attestation Attestation: I examined this patient and my medical decision-making was reviewed with the Resident Physician. I agree with the documented findings, disposition and treatment plan as described except to the extent set forth below. 67-year-old male with history of coronary disease presents ED because of chest pain. He has had multiple previous coronary stents with the last one placed about 8 weeks ago at [facility]. He has had stuttering pain throughout the day today but worsened this evening. He developed retrosternal home without response. EMS transported him uneventfully and he did not respond to sublingual nitroglycerin edition provided by EMS. Pain radiates to her shoul jada. Mild dyspnea. No diaphoresis. Obese male in no apparent distress. Oropharynx clear extremities moist. Neck supple. Chest is clear to auscultation bilaterally. Cardiac exam regular without rubs or gallops. Chest wall nontender. Abdomen soft and nontender. Extremities warm and dry without asymmetric edema. First EKG was unremarkable but second EKG was concerning for evolving ischemia on the lateral wall. He states started on IV nitroglycerin concussion. He claims allergy to heparin and Lovenox. Case was discussed with on-call cardiology and he was admitted to the medical service. The high probability of a clinically significant, sudden or life threatening deterioration of the [cardiovascular] system(s) required my full and direct attention, intervention and personal management. The aggregate critical care time was [20] minutes. This time is in addition to time spent performing reported procedures but includes the following: [x] Data Review and interpretation [x] Patient assessment and monitoring of vital signs [x] Documentation [x] Medication orders and management
[2018-04-21] MEDS ORDERED: Ondansetron ODT 4 MG TAB.RAPDIS SL ONE (20:45)
[2018-04-21 20:53] LABS: Basophils % 0.6 %; Eosinophils # 0.2 K/mcL (0.0-0.6); Eosinophils % 3.7 %; Hematocrit 32.6 % (37.5-50.1); Hemoglobin 10.8 g/dL (12.9-16.9); Immature Granulocytes % 0.3 % (0-4); Lymphocytes # 1.2 K/mcL (0.6-4.6); Lymphocytes % 19.1 %; Mean Corpuscular HGB Conc 33.1 g/dL (31.6-35.5); Mean Corpuscular Hemoglobin 29.2 pg (28.0-33.3); Mean Corpuscular Volume 88.1 fL (83.0-100.0); Mean Platelet Volume 11.1 fL (9.4-12.4); Monocytes # 0.7 K/mcL (0.0-1.3); Monocytes % 10.9 %; Neutrophils # 4.2 K/mcL (1.6-8.9); Platelet Count 193 K/mcL (140-400); Red Cell Distribution Width 14.3 % (11.5-14.5); Segmented Neutrophils % 65.4 %
[2018-04-21 21:02] LABS: Prothrombin Time 10.7 Seconds (9.4-12.1)
[2018-04-21 21:05] LABS: Activated Partial Thrombo Time 32.9 Seconds (26.0-36.0)
[2018-04-21 21:16] LABS: BUN/Creatinine Ratio 15 (6-26); Blood Urea Nitrogen 13 mg/dL (8-23); Calcium 9.1 mg/dL (8.6-10.3); Carbon Dioxide 27 mEq/L (23-29); Chloride 102 mEq/L (98-107); Glucose 408 mg/dL (70-105); Osmolality,Calculated 303 (280-300); Potassium 4.3 mEq/L (3.5-5.1); Sodium 138 mEq/L (136-145); eGFR For Non-African Americans > 60 (> 60)
[2018-04-21 21:21] LABS: Troponin I 0.79 ng/mL (< 0.04)
[2018-04-21] MEDS ORDERED: Nitroglycerin 0.4 MG TAB.SUBL SL ONE ×2 (21:26→21:49)
[2018-04-21] MEDS ORDERED: Baclofen 10 MG TABLET PO STA (21:49)
[2018-04-21] MEDS ORDERED: Gabapentin 300 MG CAPSULE PO ONE (21:49)
[2018-04-21] MEDS ORDERED: *HR* Enoxaparin 120 MG/0.8 ML SYRINGE SQ STA (22:54)
[2018-04-21] MEDS ORDERED: Nitroglycerin 25 MG/250 ML INFUS..BTL IVC SCH (23:00)
[2018-04-22] MEDS ORDERED: Nitroglycerin 0.4 MG TAB.SUBL SL PRN (01:36)
[2018-04-22] MEDS ORDERED: *HR* HYDROcodone/Acet 5/325 mg TABLET PO PRN (01:36)
[2018-04-22] MEDS ORDERED: MOM Conc 10 ML UD.LIQ PO PRN (01:36)
[2018-04-22] MEDS ORDERED: Dextrose Gel 15 GM/37.5 ML TUBE PO PRN ×2 (01:38)
[2018-04-22] MEDS ORDERED: Mag Hydrox/Al Hydrox/Simeth 30 ML UDC PO PRN (02:32)
--- NOTE | 2018-04-22 02:54 | Internal Med History&Physical ---
Date of Encounter: 04/22/18 Time of Encounter: 02:51 Internal Medicine - H&P: HPI Chief complaint: chest pain Admitted From: Home Plans for Post Hospital Care: Home History of present illness: Nando Taylor is a 67 year old man with an extensive coronary artery disease history with multiple stents placed due to MIs. He comes in complaining of chest pain with radiation to his shoulders and bilateral arms. He states that started while he was at rest watching TV and felt a pressure in the middle of his chest with a tingling sensation in his arms. On route he received loading dose of aspirin and nitroglycerin with minimal relief of his pain. He received 2 more nitroglycerin pills with only modest relief of subsequently started on nitroglycerin drip. EKG showed no ST segment elevations. Her tropo tori was noted at 0.79. He reported a history of allergy to heparin and LMWH therefore anticoagulation was not started. On nitroglycerin drip his chest pain obtain the most relief and is now admitted for further care. Past Med Surg Social Fam HX - Past Medical History Medical history: diabetes, hyperlipidemia, hypertension, myocardial infarction, other (CAD) Additional medical history: neuropathy. pancreatitis Psychiatric history: no psych history - Past Surgical History Additional surgical history: multiple stents. colon resection - Social History Smoking Status: Never smoker Smokeless Tobacco Status: No Alcohol use: none Drug use: none - Family History Father Hx Family Cardiac Disorders: Yes Internal Medicine - H&P: Meds Aspirin 325 mg PO DAILY 04/21/18 [History] Atorvastatin [Lipitor] 80 mg PO HS 04/21/18 [History] Baclofen 5 mg PO TID 04/21/18 [History] Cetirizine HCl [24Hour Allergy] 10 mg PO DAILY 04/21/18 [History] Cholecalciferol (D-3) [Vitamin D] 10,000 unit PO DAILY 04/21/18 [History] Cyanocobalamin (Vitamin B-12) [Vitamin B12] 1,000 mcg PO DAILY 04/21/18 [History] Gabapentin [Neurontin] 1,200 mg PO BID 04/21/18 [History] Hydrocodone/Acetaminophen [[place] 5-325 Tablet] 1 tab PO BID PRN 04/21/18 [History] Insulin ASPART [NovoLOG] 18 - 25 unit SQ TIDWM 04/21/18 [History] Insulin Glargine,Hum.rec.anlog [Lantus Solostar] 55 unit SQ Q12H 04/21/18 [History] Isosorbide MONOnitrate (24 HR) [Imdur] 30 mg PO BID 04/21/18 [History] Losartan [Cozaar] 25 mg PO DAILY 04/21/18 [History] Mag Hydrox/Al Hydrox/Simeth [Maalox] 15 ml PO Q6HR PRN 04/21/18 [History] Magnesium Oxide [Magnesium] 400 mg PO DAILY 04/21/18 [History] Metoprolol Succinate [Toprol Xl] 50 mg PO DAILY 04/21/18 [History] Nitroglycerin [Nitrostat] 0.4 mg SL AD PRN 04/21/18 [History] [place]-3/Dha/Epa/Fish Oil [Fish Oil 1,000 mg Softgel] 2 cap PO DAILY 04/21/18 [History] Pantoprazole Sodium 40 mg PO DAILY 04/21/18 [History] Prasugrel [Effient] 10 mg PO DAILY 04/21/18 [History] Ranolazine [Ranexa] 500 mg PO BID 04/21/18 [History] raNITIdine HCl [Zantac] 150 mg PO BID 04/21/18 [History] Allergy/AdvReac Type Severity Reaction Status Date / Time codeine Allergy Anaphylaxis Verified 04/21/18 20:37 heparin Allergy Hives Verified 04/21/18 20:37 Iodinated Contrast- Oral and AdvReac Vomiting Verified 04/21/18 20:38 IV Dye IV dye AdvReac Vomiting Uncoded 08/09/17 21:58 All Systems PM: A 10-system review of systems was performed and is negative for pertinent findings except as documented above in the HPI. - Constitutional Vitals: Temp Pulse Resp BP Pulse Ox 97.8 F 80 17 155/75 96 04/22/18 01:23 04/22/18 01:23 04/22/18 01:23 04/22/18 01:23 04/22/18 01:23 Exam: Vitals: Reviewed General: Obese white male lying comfortably in bed in no acute distress. Skin: Warm and supple. HEENT: Moist mucous membranes. No conjunctivae pallor. Neck: No lymphadenopathy. No JVD. No carotid bruits. No palpable thyroid. Chest: Normal thoracic expansion. Normal breath sounds. Clear to auscultation. Heart: Normal S1 & S2; rhythmic. Abdomen: soft and non-tender to palpation. No peritoneal reaction. Extremities: No clubbing, cyanosis or edema. No calf tenderness. Normal distal pulses. Neurological: Awake, alert and oriented to person, place and time. No focal deficits. Psych: Affect appropriate. Internal Med - H&P Results - Labs CBC & Chem 7: 04/21/18 20:41 04/21/18 20:41 Labs: Short CBC 04/21/18 Range/Units 20:41 WBC 6.4 (4.3-11.1) K/mcL Hgb 10.8 L (12.9-16.9) g/dL Hct 32.6 L (37.5-50.1) % Plt Count 193 (140-400) K/mcL Neutrophils # 4.2 (1.6-8.9) K/mcL BMP 04/21/18 20:41 Sodium 138 Potassium 4.3 Chloride 102 Carbon Dioxide 27 BUN 13 Creatinine 0.87 Glucose 408 H Calcium 9.1 Cardiac Enzymes 04/21/18 Range/Units 20:41 Troponin I 0.79 H* (< 0.04) ng/mL - Impressions ITS Impressions Chest X-Ray 04/21/18 20:33 IMPRESSION: No acute findings. D/ / Bartolo Hammer MD / Bartolo Hammer MD Interpreting Provider: Bartolo Hammer MD - Assessment and plan (1) NSTEMI (non-ST elevated myocardial infarction) Current Visit: Yes Status: Acute Assessment and plan: The patient has an extensive cardiac history now with chest pain rebellious to SL NTG. Will monitor closely on telemetry, trend troponins and keep NPO pending cardiology evaluation. (2) CAD (coronary artery disease) Current Visit: Yes Status: Acute Assessment and plan: Continue dual antiplatelet therapy, statin, nitrate and ranolazine. Needs continued education on risk factor modification. Qualifiers: Coronary Disease-Associated Artery/Lesion type: [place] artery [place] vs. transplanted heart: [place] heart Associated angina: with unspecified angina Qualified Code(s): I25.119 - Atherosclerotic heart disease of [place] coronary artery with unspecified angina pectoris (3) Diabetes mellitus Current Visit: Yes Status: Acute Assessment and plan: Poorly controlled. Monitor with insulin sliding scale. 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 Will resume home meds once verified. Qualifiers: Hypertension type: essential hypertension Qualified Code(s): I10 - Essential (primary) hypertension (5) DVT prophylaxis Current Visit: Yes Status: Acute Assessment and plan: Place on IPC due to heparin allergy. - Time Spent With Patient Total time spent is greater than 50% in coordination of care (as documented) at patient's floor/unit and/or counseling patient: Greater than 35 minutes
[2018-04-22] MEDS ORDERED: 0.9 % Sodium Chloride 500 ML ONE ×3 (03:04→11:25)
[2018-04-22] MEDS: Insulin LISPRO 300 UNITS/3 ML VIAL SQ SCH ×2 (05:50→12:03)
[2018-04-22] MEDS ORDERED: Ondansetron 4 MG/2 ML VIAL IVP PRN (05:58)
[2018-04-22] MEDS ORDERED: (Fish Oil 1,000 Mg Softgel) PO SCH (09:00)
[2018-04-22] MEDS ORDERED: Aspirin 325 MG TABLET PO SCH (09:00)
[2018-04-22] MEDS ORDERED: Ranolazine 500 MG TAB.ER.12H PO SCH (09:00)
[2018-04-22] MEDS ORDERED: Cyanocobalamin (B-12) 1,000 MCG TABLET PO SCH (09:00)
[2018-04-22] MEDS ORDERED: Famotidine 20 MG TABLET PO SCH (09:00)
[2018-04-22] MEDS ORDERED: Gabapentin 400 MG CAPSULE PO SCH (09:00)
[2018-04-22] MEDS ORDERED: Baclofen 10 MG TABLET PO SCH (09:00)
[2018-04-22] MEDS ORDERED: Loratadine 10 MG TABLET PO SCH (09:00)
[2018-04-22] MEDS ORDERED: Magnesium Oxide 400 MG TABLET PO SCH (09:00)
[2018-04-22] MEDS ORDERED: Isosorbide MONOnitrate (24 HR) 30 MG TAB.ER.24H PO SCH (09:00)
[2018-04-22] MEDS ORDERED: Metoprolol XL (24 HR) Succ 50 MG TAB.ER.24H PO SCH (09:00)
--- NOTE | 2018-04-22 09:12 | Event Note ---
Date of Encounter: 04/26/18 Time of Encounter: 11:00 Patient seen and evaluated by nocturnalist earlier this morning and also by myself. Patient is a 67-year-old male with past medical history significant for coronary artery disease with multiple stents due to multiple MIs who presents with chest pain found to have elevated troponins. Patient has been given Lovenox 1 mg/kg this morning Troponins 0.79->0.83 Cardiology consulted and appreciate recommendations
[2018-04-22] MEDS ORDERED: Argatroban 250 MG in D5% in Water 250 ML IVC SCH (10:00)
[2018-04-22] MEDS ORDERED: predniSONE 20 MG TABLET PO ONE (11:20)
[2018-04-22 11:21] LABS: Albumin 3.7 g/dL (3.5-5.7); Albumin/Globulin Ratio 1.3 (1.1-2.2); Bilirubin,Direct 0.1 mg/dL (0.0-0.2); Bilirubin,Indirect 0.5 mg/dL (0.0-1.2); Bilirubin,Total 0.6 mg/dL (0.3-1.0); Globulin 2.8 g/dL (2.4-3.5); Total Protein 6.5 g/dL (6.4-8.9)
--- NOTE | 2018-04-22 11:24 | Cardiology Consult Note ---
<Lara Trimble - Last Filed: 04/22/18 11:21> Date of Encounter: 04/22/18 Time of Encounter: 08:45 Assessment and Plan (1) NSTEMI (non-ST elevated myocardial infarction) Current Visit: Yes Status: Acute Per cardiology: -ADmitted typical chest pain, similar to previous angina. -Troponins 0.79, 0.83, 0.54. -Non-specific T wave abnormalities noted on ECG. -Reports current 2/10 chest pain, states much improved. -ON nitro drip at 5mcg/min. -TTE was ordered. -On asa, statin, BB. Not on heparin/lovenox due to allergy, reports hives with heparin/lovenox. -Recommend argatroban drip for anticoagulation-discussed with hospitalist. -Recommend LHC, however patient does not wish to have any further testing at [facility]. Patient requesting transfer to [place]. -Titrate nitro drip for chest pain. -ALso noted allergy to IVP dye, will give 60mg prednisone now in preparation for possible LHC at [place]. -Cardiology will sign off, please re-consult if needed. (2) CAD (coronary artery disease) Current Visit: Yes Status: Chronic Per cardiology: -Known history of CAD, s/p reported 8 stents. -See NSTEMI as above. Qualifiers: Coronary Disease-Associated Artery/Lesion type: [place] artery [place] vs. transplanted heart: [place] heart Associated angina: with unstable angina Qualified Code(s): I25.119 - Atherosclerotic heart disease of [place] coronary artery with unspecified angina pectoris Discussion w patient/family: The assessment and plan as outlined above was discussed with the patient who expressed understanding and agreement. All questions were answered. Thank you for involving us in the care of your patient. Please call with any questions. Discussed and reviewed with . History of Present Illness Consult date: 04/21/18 Requesting physician: Buffy Graham Consult reason: elevated troponin Chief complaint: chest pain History of present illness: Mr. Taylor is a 67 year old male with a relevant past medical history of CAD s/p reported 8 PCI, [place], DM, HTN, HLD, peripheral neuropathy who presented to [facility] with complaints of chest pain. Patient reports chest pain started while up walking around. States pain was in the center of his chest and radiated to both arms. States pain similar to previous angina. Reports took nitro at home without relief, so he decided to come to hospital. Reports current chest pain 2/, states much improved. Denies shortness of breath. Patient also reports has noticed increased fatigue over the past couple of weeks. Past Med Surg Social Fam HX - Past Medical History Attestation: Yes The following information was validated with the patient. Source: patient, old records reviewed Medical history: diabetes, hyperlipidemia, hypertension, myocardial infarction, other (CAD) Additional medical history: neuropathy. pancreatitis Psychiatric history: no psych history - Past Surgical History Additional surgical history: multiple stents. colon resection - Social History Smoking Status: Never smoker Smokeless Tobacco Status: No Alcohol use: none Drug use: none - Family History Father Hx Family Cardiac Disorders: Yes Medications and Allergies Atorvastatin [Lipitor] 80 mg PO HS 04/21/18 [History] Cetirizine HCl [24Hour Allergy] 10 mg PO DAILY 04/21/18 [History] Cholecalciferol (D-3) [Vitamin D] 10,000 unit PO DAILY 04/21/18 [History] Cyanocobalamin (Vitamin B-12) [Vitamin B12] 1,000 mcg PO DAILY 04/21/18 [History] Gabapentin [Neurontin] 1,200 mg PO BID 04/21/18 [History] Hydrocodone/Acetaminophen [[place] 5-325 Tablet] 1 tab PO BID PRN 04/21/18 [History] Insulin ASPART [NovoLOG] 18 - 25 unit SQ TIDWM 04/21/18 [History] Insulin Glargine,Hum.rec.anlog [Lantus Solostar] 55 unit SQ Q12H 04/21/18 [Hist ory] Isosorbide MONOnitrate (24 HR) [Imdur] 30 mg PO BID 04/21/18 [History] Losartan [Cozaar] 25 mg PO DAILY 04/21/18 [History] Mag Hydrox/Al Hydrox/Simeth [Maalox] 15 ml PO Q6HR PRN 04/21/18 [History] Magnesium Oxide [Magnesium] 400 mg PO DAILY 04/21/18 [History] Metoprolol Succinate [Toprol Xl] 50 mg PO DAILY 04/21/18 [History] Nitroglycerin [Nitrostat] 0.4 mg SL AD PRN 04/21/18 [History] [place]-3/Dha/Epa/Fish Oil [Fish Oil 1,000 mg Softgel] 2 cap PO DAILY 04/21/18 [History] Prasugrel [Effient] 10 mg PO DAILY 04/21/18 [History] RX: Aspirin 325 mg PO DAILY 04/21/18 [History] RX: Baclofen 5 mg PO TID 04/21/18 [History] RX: Pantoprazole Sodium 40 mg PO DAILY 04/21/18 [History] Ranolazine [Ranexa] 500 mg PO BID 04/21/18 [History] raNITIdine HCl [Zantac] 150 mg PO BID 04/21/18 [History] Allergy/AdvReac Type Severity Reaction Status Date / Time codeine Allergy Anaphylaxis Verified 04/21/18 20:37 heparin Allergy Hives Verified 04/21/18 20:37 Iodinated Contrast- Oral and AdvReac Vomiting Verified 04/21/18 20:38 IV Dye IV dye AdvReac Vomiting Uncoded 08/09/17 21:58 All Systems Review: The remainder of the systems were reviewed and are negative - Constitutional Constitutional: fatigue - Cardiovascular Cardiovascular: as per HPI, chest pain with exertion Physical Examination Vital Signs, Last 4 Hours Temp Pulse Resp BP Pulse Ox 04/22/18 08:00 98.0 F 92 18 130/73 96 General: Conversant, No Apparent Distress HEENT: Atraumatic, Normocephaly, Mucus Membranes Moist Neck: No JVD, Normal carotid pulses Cardiac: Reg Rate and Rhythm, Normal S1 and S2, No Murmur Lungs: Normal Breath Sounds, No Wheeze, Rales, Rhonchi Neuro: Alert and responsive, No focal deficits noted Abdomen: Soft, Non-Tender Skin: No rashes noted on visualized skin Musculoskeletal: No Chest Wall Tenderness Extremities: No Clubbing, No Cyanosis, No Edema, Normal Pulses Results 04/21/18 20:41 04/21/18 20:41 Lab Results Impressions Chest X-Ray 04/21/18 20:33 IMPRESSION: No acute findings. D/ / Bartolo Hammer MD / Bartolo Hammer MD Interpreting Provider: Bartolo Hammer MD Active Medications Hydrocodone Bitart/Acetaminophen ([place] 5-325 Mg) 1 tab PO BID PRN PRN Reason: Severe Pain Stop: 10/22/18 01:37 Last Admin: 04/22/18 05:42 Dose: 1 tab Al Hydrox/Mg Hydrox/Simethicone (Maalox) 30 ml PO Q4H PRN; Protocol PRN Reason: Dyspepsia Stop: 10/22/18 02:33 Last Admin: 04/22/18 02:51 Dose: 30 ml Aspirin (Aspirin) 325 mg PO DAILY [facility] Stop: 10/22/18 09:01 Last Admin: 04/22/18 10:20 Dose: 325 mg Atorvastatin Calcium (Lipitor) 80 mg PO HS [facility] Stop: 10/22/18 21:01 Baclofen (Lioresal) 5 mg PO TID [facility] Stop: 10/22/18 09:01 Last Admin: 04/22/18 10:20 Dose: 5 mg Cyanocobalamin (Vitamin B12) 1,000 mcg PO DAILY [facility] Stop: 10/22/18 09:01 Last Admin: 04/22/18 10:20 Dose: 1,000 mcg Famotidine (Pepcid) 20 mg PO BID [facility] Stop: 10/22/18 09:01 Last Admin: 04/22/18 10:21 Dose: 20 mg Gabapentin (Neurontin) 1,200 mg PO BID [facility] Stop: 10/22/18 09:01 Last Admin: 04/22/18 10:20 Dose: 1,200 mg Glucose (Gluctose) 15 gm PO ONCE PRN PRN Reason: Hypoglycemia Stop: 10/22/18 01:39 Glucose (Gluctose) 30 gm PO ONCE PRN PRN Reason: Hypoglycemia Stop: 10/22/18 01:39 Nitroglycerin (Nitroglycerin Premix 25 Mg/250 Ml) 25 mg in 250 mls @ 3 mls/hr IVC .Q24H [facility]; Protocol Stop: 10/21/18 23:01 Last Admin: 04/21/18 23:18 Dose: 5 mcg/min, 3 mls/hr Argatroban 250 mg/ Dextrose 252.5 mls @ 13.65 mls/hr IVC CONT [facility]EL[facility]; Protocol Stop: 10/22/18 10:01 Last Admin: 04/22/18 11:17 Dose: 2 mcg/kg/min, 13.65 mls/hr Insulin Detemir (Levemir) 55 unit SQ HS [facility] Stop: 10/22/18 21:01 Insulin Human Lispro (Humalog) 0 units SQ Q6HR [facility]; Protocol Stop: 10/22/18 06:01 Last Admin: 04/22/18 05:50 Dose: 14 units Isosorbide Mononitrate (Imdur) 30 mg PO BID [facility] Stop: 10/22/18 09:01 Last Admin: 04/22/18 10:19 Dose: 30 mg Loratadine (Claritin) 10 mg PO DAILY [facility] Stop: 10/22/18 09:01 Last Admin: 04/22/18 10:20 Dose: 10 mg Losartan Potassium (Cozaar) 25 mg PO DAILY [facility]; Protocol Stop: 10/22/18 09:01 Last Admin: 04/22/18 10:20 Dose: 25 mg Magnesium Hydroxide (Milk Of Magnesia Conc) 15 ml PO Q6H PRN PRN Reason: GERD Stop: 10/22/18 01:37 Magnesium Oxide (Mag-Ox) 400 mg PO DAILY [facility] Stop: 10/22/18 09:01 Last Admin: 04/22/18 10:20 Dose: 400 mg Metoprolol Succinate (Toprol Xl) 50 mg PO DAILY [facility] Stop: 10/22/18 09:01 Last Admin: 04/22/18 10:20 Dose: 50 mg Nitroglycerin (Nitroglycerin) 0.4 mg SL AD PRN PRN Reason: Chest Pain Stop: 10/22/18 01:37 Omeprazole (Prilosec) 20 mg PO DAILY [facility] Stop: 10/22/18 09:01 Last Admin: 04/22/18 10:20 Dose: 20 mg Ondansetron HCl (Zofran) 4 mg IVP Q6HR PRN; Protocol PRN Reason: Nausea And Vomiting Stop: 10/22/18 05:59 Last Admin: 04/22/18 06:25 Dose: 4 mg Pharmacy Profile Note (Patient Taking Own Medication) 2 each PO DAILY [facility] Stop: 10/22/18 09:01 Last Admin: 04/22/18 10:21 Dose: Not Given Prasugrel (Effient) 10 mg PO DAILY [facility] Stop: 10/22/18 09:01 Last Admin: 04/22/18 10:20 Dose: 10 mg Ranolazine (Ranexa) 500 mg PO BID [facility] Stop: 10/22/18 09:01 Last Admin: 04/22/18 10:20 Dose: 500 mg Laboratory Tests 04/21/18 04/21/18 04/22/18 20:41 20:41 03:06 Hgb 10.8 L Creatinine 0.87 Troponin I 0.79 H* 0.83 H* 04/22/18 09:09 Hgb Creatinine Troponin I 0.54 H* - Imaging and Cardiology Chest Xray: report reviewed - EKG Interpretation EKG results cardiology: personally reviewed (ECG with SR, non-specific T wave abnormality noted.), other (Telemetry reviewed with average HR previous 12 hours noted to be 87, SR. PVCs, PACs noted. Short runs of atrial tachycardia noted.) Consult Discharge Plan - Plan Instructions: Myocardial Infarction (DC), Chest Pain (DC) [facility]: [facility]Primary Care Provider[facility] - <Felipe Hernandez - Last Filed: 04/22/18 15:38> Date of Encounter: 04/22/18 - Attending Attestation I have personally performed a face to face evaluation on this patient. I have reviewed and agree with the care plan. History and Exam by me shows: As above NSTEMI with 20 stents in past, patient requests transfer understanding R/B/A of waiting with ongoing chest pain. Patient declines a LHC here at [facility]. He has positive trops on IV heparin and Nitro. Chest pain down from a 6/10 to 1/10. Assessment and Plan Discussion w patient/family: The assessment and plan as outlined above was discussed with the patient and/or family members who expressed understanding and agreement. All questions were answered. Thank you for involving us in the care of your patient. Please call with any questions. History of Present Illness History of present illness: Mr. Taylor is a 67 year old male All Systems Review: The remainder of the systems were reviewed and are negative Physical Examination Vital Signs, Last 4 Hours Temp Pulse Resp BP Pulse Ox 04/22/18 11:45 98.0 F 83 16 135/76 97 Results 04/21/18 20:41 04/21/18 20:41 Lab Results 04/21/18 04/21/18 04/21/18 20:41 20:41 20:41 WBC 6.4 Hgb 10.8 L Hct 32.6 L Plt Count 193 INR 1.0 APTT 32.9 Sodium 138 Potassium 4.3 Chloride 102 Carbon Dioxide 27 BUN 13 Creatinine 0.87 Glucose 408 H Calcium 9.1 Total Bilirubin AST ALT Alkaline Phosphatase Troponin I 0.79 H* 04/22/18 04/22/18 04/22/18 03:06 09:09 10:48 WBC Hgb Hct Plt Count INR APTT 20.7 L Sodium Potassium Chloride Carbon Dioxide BUN Creatinine Glucose Calcium Total Bilirubin AST ALT Alkaline Phosphatase Troponin I 0.83 H* 0.54 H* 04/22/18 10:48 WBC Hgb Hct Plt Count INR APTT Sodium Potassium Chloride Carbon Dioxide BUN Creatinine Glucose Calcium Total Bilirubin 0.6 AST 20 ALT 12 Alkaline Phosphatase 46 Troponin I
[2018-04-22 11:47] VITALS: BP 135/76
--- NOTE | 2018-04-22 19:56 | Discharge Summary ---
Date of Encounter: 04/22/18 Time of Encounter: 11:00 - Discharge Diagnosis (1) Diabetes mellitus Priority: Secondary Status: Acute Qualifiers: Diabetes mellitus type: type 2 Diabetes mellitus prison insulin use: with prison use Diabetes mellitus complication status: with neurologic complications Diabetes mellitus complication detail: with unspecified neuropathy Qualified Code(s): E11.40 - Type 2 diabetes mellitus with diabetic neuropathy, unspecified; Z79.4 - retirement (current) use of insulin (2) CAD (coronary artery disease) Priority: Secondary Status: Chronic Qualifiers: Coronary Disease-Associated Artery/Lesion type: [place] artery [place] vs. transplanted heart: [place] heart Associated angina: with unstable angina Qualified Code(s): I25.110 - Atherosclerotic heart disease of [place] coronary artery with unstable angina pectoris (3) HTN (hypertension) Priority: Secondary Status: Acute Qualifiers: Hypertension type: essential hypertension Qualified Code(s): I10 - Essential (primary) hypertension (4) NSTEMI (non-ST elevated myocardial infarction) Priority: Primary Status: Acute Hospital course: Patient is a 67-year-old man with an extensive coronary artery disease history with multiple stents placed due to MIs who presented with chest pain. Patient reported that chest pain with radiation to his shoulders and bilateral arms. He states that started while he was at rest watching TV and felt a pressure in the middle of his chest with a tingling sensation in his arms. On route he received loading dose of aspirin and nitroglycerin with minimal relief of his pain. He received 2 more nitroglycerin pills with only modest relief of subsequently started on nitroglycerin drip. EKG showed no ST segment elevations. Her troponin was noted at 0.79. He reported a history of allergy to heparin and LMWH therefore anticoagulation was not started. On nitroglycerin drip his chest pain obtain the most relief and is now admitted for further care. Patient requested however to be transferred to [facility] due to his 8 stents were placed. [facility] was contacted and will accept the patient for transfer for further management of elevated troponins under cardiology service. - Time Spent with Patient Total time spent providing and/or coordinating discharge services: - Discharge Medications Home Medications: Aspirin 325 mg PO DAILY 04/21/18 [History] Atorvastatin [Lipitor] 80 mg PO HS 04/21/18 [History] Baclofen 5 mg PO TID 04/21/18 [History] Cetirizine HCl [24Hour Allergy] 10 mg PO DAILY 04/21/18 [History] Cholecalciferol (D-3) [Vitamin D] 10,000 unit PO DAILY 04/21/18 [History] Cyanocobalamin (Vitamin B-12) [Vitamin B12] 1,000 mcg PO DAILY 04/21/18 [History] Gabapentin [Neurontin] 1,200 mg PO BID 04/21/18 [History] Hydrocodone/Acetaminophen [[place] 5-325 Tablet] 1 tab PO BID PRN 04/21/18 [History] Insulin ASPART [NovoLOG] 18 - 25 unit SQ TIDWM 04/21/18 [History] Insulin Glargine,Hum.rec.anlog [Lantus Solostar] 55 unit SQ Q12H 04/21/18 [History] Isosorbide MONOnitrate (24 HR) [Imdur] 30 mg PO BID 04/21/18 [History] Losartan [Cozaar] 25 mg PO DAILY 04/21/18 [History] Mag Hydrox/Al Hydrox/Simeth [Maalox] 15 ml PO Q6HR PRN 04/21/18 [History] Magnesium Oxide [Magnesium] 400 mg PO DAILY 04/21/18 [History] Metoprolol Succinate [Toprol Xl] 50 mg PO DAILY 04/21/18 [History] Nitroglycerin [Nitrostat] 0.4 mg SL AD PRN 04/21/18 [History] [place]-3/Dha/Epa/Fish Oil [Fish Oil 1,000 mg Softgel] 2 cap PO DAILY 04/21/18 [History] Pantoprazole Sodium 40 mg PO DAILY 04/21/18 [History] Prasugrel [Effient] 10 mg PO DAILY 04/21/18 [History] Ranolazine [Ranexa] 500 mg PO BID 04/21/18 [History] raNITIdine HCl [Zantac] 150 mg PO BID 04/21/18 [History] Allergies/Adverse Reactions: Allergy/AdvReac Type Severity Reaction Status Date / Time codeine Allergy Anaphylaxis Verified 04/21/18 20:37 heparin Allergy Hives Verified 04/21/18 20:37 Iodinated Contrast- Oral and AdvReac Vomiting Verified 04/21/18 20:38 IV Dye IV dye AdvReac Vomiting Uncoded 08/09/17 21:58 Date of admission: 04/22/18 02:02 Primary care physician: [facility] Consults: 04/21/18 22:37 Consult to Cardiology [CONS] Stat Comment: Consulting Provider: Cardiology Suki Reason for Consult: ongoing chest pain, elevated troponin, no EKG changes, h/o multiple stents Time Notified: 22:38 Call Completed: Yes 04/22/18 02:07 Consult to [employer] [CONS] Routine Reason for SW Consult: patient from [place] will need follow up on discharge - Constitutional Vitals: Temp Pulse Resp BP Pulse Ox 98.0 F 83 16 135/76 97 04/22/18 11:45 04/22/18 11:45 04/22/18 11:45 04/22/18 11:45 04/22/18 11:45 Exam: Gen.: Nonacute distress, alert and oriented 3 Skin: Normal color - Patient Status Disposition: Transfer Other Condition: Fair - Discharge Instructions Instructions: Myocardial Infarction (DC), Chest Pain (DC) [facility] With: [facility] Care Provider[facility] - Forms: ED Satisfaction Letter
[2018-04-22] MEDS ORDERED: Insulin DETEMIR 100 UNIT/ML X5UNITS SQ SCH (21:00)
--- NOTE | 2018-04-24 11:03 | Electrocardiograph Report ---
[address] [address] Test Date: 2018-04-21 Pat Name: Nando Taylor Department: [id number] Room: 2NE18 Gender: M Kilnman: : 1950 Requested By: Buffy Graham Order Number: [id number] Reading MD: Alanna Daniel Measurements Intervals [place] Rate: 80 P: 93 [place]: 158 QRS: 39 QRSD: 92 T: 56 QT: 350 QTc: 404 Interpretive Statements Sinus rhythm Low voltage, precordial leads Electronically Signed On 04-24-2018 11:02:28 EST by Alanna Daniel
--- NOTE | 2018-04-24 11:07 | Electrocardiograph Report ---
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
== END 2018-04-22 15:37 | disposition other institution (70) | DRG 282 ==
LOC: EMEROOARM 20:17 → 2NENU 20:17 → SUATTDRO 04-22 02:02
PROVIDERS: ADMIT Internal Medicine; ATTEND Hospitalist

== ENCOUNTER 2020-07-02 19:49 | Inpatient (IN) ==
[2020-07-02] MEDS ORDERED: Vancomycin 1,750 MG/517.5 ML IV.SOLN IVPB ONE (20:37)
[2020-07-02] MEDS ORDERED: 0.9 % Sodium Chloride 1,000 ML IVC ONE (20:38)
[2020-07-02 21:51] LABS: Basophils % 0.3 %; Eosinophils # 0.3 K/mcL (0.0-0.6); Eosinophils % 4.5 %; Hematocrit 30.9 % (37.5-50.1); Hemoglobin 10.1 g/dL (12.9-16.9); Immature Granulocytes % 0.3 % (0-4); Lymphocytes # 1.3 K/mcL (0.6-4.6); Lymphocytes % 18.9 %; Mean Corpuscular HGB Conc 32.7 g/dL (31.6-35.5); Mean Corpuscular Volume 91.7 fL (83.0-100.0); Mean Platelet Volume 11.1 fL (9.4-12.4); Monocytes # 0.8 K/mcL (0.0-1.3); Monocytes % 10.6 %; Neutrophils # 4.6 K/mcL (1.6-8.9); Platelet Count 226 K/mcL (140-400); Red Blood Count 3.37 M/mcL (4.19-5.50); Red Cell Distribution Width 12.6 % (11.5-14.5); Segmented Neutrophils % 65.4 %; White Blood Count 7.1 K/mcL (4.3-11.1)
[2020-07-02 22:12] LABS: BUN/Creatinine Ratio 18 (6-26); Blood Urea Nitrogen 14 mg/dL (8-23); Calcium 8.7 mg/dL (8.6-10.3); Carbon Dioxide 28 mEq/L (23-29); Chloride 102 mEq/L (98-107); Glucose 234 mg/dL (70-105); Osmolality,Calculated 294 (280-300); Potassium 3.9 mEq/L (3.5-5.1); Sodium 138 mEq/L (136-145); eGFR For African Americans > 60 (> 60); eGFR For Non-African Americans > 60 (> 60)
[2020-07-03] MEDS ORDERED: Naloxone 0.4 MG/ML INJ IVP PRN (00:04)
[2020-07-03] MEDS ORDERED: Ondansetron ODT 4 MG TAB.RAPDIS SL PRN (00:04)
[2020-07-03] MEDS ORDERED: Acetaminophen 325 MG TABLET PO PRN (00:04)
[2020-07-03] MEDS ORDERED: *HR* Dextrose 50 % in Water (Vial) 50 ML VIAL IVP PRN (00:21)
[2020-07-03] MEDS ORDERED: Dextrose Gel 15 GM/37.5 ML TUBE PO PRN ×2 (00:21)
[2020-07-03] MEDS ORDERED: D5% in Water 1,000 ML IVC PRN (00:21)
[2020-07-03] MEDS ORDERED: Nitroglycerin 0.4 MG TAB.SUBL SL PRN (00:53)
[2020-07-03] MEDS ORDERED: MOM Conc 10 ML UD.LIQ PO PRN (00:53)
[2020-07-03] MEDS: Gabapentin 400 MG CAPSULE PO SCH ×3 (01:21→20:01)
[2020-07-03] MEDS: Baclofen 10 MG TABLET PO SCH ×4 (01:22→20:06)
[2020-07-03] MEDS: 0.9 % Sodium Chloride 1,000 ML IVC SCH ×2 (01:23→11:13)
[2020-07-03 01:49] LABS: Basophils % 0.4 %; Eosinophils # 0.3 K/mcL (0.0-0.6); Hematocrit 32.3 % (37.5-50.1); Hemoglobin 10.5 g/dL (12.9-16.9); Immature Granulocytes % 0.3 % (0-4); Lymphocytes # 1.3 K/mcL (0.6-4.6); Lymphocytes % 17.7 %; Mean Corpuscular HGB Conc 32.5 g/dL (31.6-35.5); Mean Corpuscular Hemoglobin 29.6 pg (28.0-33.3); Mean Platelet Volume 11.1 fL (9.4-12.4); Monocytes # 0.7 K/mcL (0.0-1.3); Monocytes % 9.6 %; Neutrophils # 5.1 K/mcL (1.6-8.9); Platelet Count 235 K/mcL (140-400); Red Blood Count 3.55 M/mcL (4.19-5.50); Red Cell Distribution Width 12.7 % (11.5-14.5); White Blood Count 7.5 K/mcL (4.3-11.1)
[2020-07-03 01:56] LABS: INR 1.1; Prothrombin Time 12.4 Seconds (9.4-12.1)
[2020-07-03] MEDS ORDERED: Vancomycin 1,750 MG in 0.9 % Sodium Chloride 250 ML IVPB SCH (02:00)
[2020-07-03 02:19] LABS: BUN/Creatinine Ratio 18 (6-26); Blood Urea Nitrogen 14 mg/dL (8-23); Calcium 8.6 mg/dL (8.6-10.3); Carbon Dioxide 26 mEq/L (23-29); Chloride 104 mEq/L (98-107); Glucose 322 mg/dL (70-105); Magnesium 1.7 mg/dL (1.6-2.6); Osmolality,Calculated 301 (280-300); Potassium 4.4 mEq/L (3.5-5.1); Sodium 139 mEq/L (136-145); eGFR For African Americans > 60 (> 60); eGFR For Non-African Americans > 60 (> 60)
[2020-07-03] MEDS ORDERED: Clindamycin 600 MG/50 ML 600 MG/50 ML IV.SOLN IVPB SCH (08:00)
[2020-07-03] MEDS: Magnesium Oxide 400 MG TABLET PO SCH (09:29)
[2020-07-03] MEDS: Famotidine 20 MG TABLET PO SCH ×2 (09:30→20:01)
[2020-07-03] MEDS: Cyanocobalamin (B-12) 1,000 MCG TABLET PO SCH (09:31)
[2020-07-03] MEDS: Isosorbide MONOnitrate (24 HR) 30 MG TAB.ER.24H PO SCH ×2 (09:31→20:01)
[2020-07-03] MEDS: Metoprolol XL (24 HR) Succ 50 MG TAB.ER.24H PO SCH (09:31)
[2020-07-03] MEDS: Ranolazine 500 MG TAB.ER.12H PO SCH ×2 (09:32→20:02)
[2020-07-03] MEDS: Cholecalciferol (D-3) 1,000 UNIT (25MCG) TABLET PO SCH (09:32)
[2020-07-03] MEDS: Loratadine 10 MG TABLET PO SCH (09:32)
[2020-07-03] MEDS: Aspirin 325 MG TABLET PO SCH (09:33)
[2020-07-03] MEDS: Insulin LISPRO 300 UNITS/3 ML VIAL SUBQ SCH ×3 (09:45→16:59)
[2020-07-03] MEDS ORDERED: Vancomycin 1,250 MG/262.5 ML IV.SOLN IVPB SCH (10:00)
[2020-07-03] MEDS: (Fish Oil 1,000 Mg Softgel) PO SCH (11:14)
[2020-07-03] MEDS: Piperacillin/Tazobactam 3.375 GM in 0.9 % Sodium Chloride Mini Bag 100 ML IVPB SCH ×2 (15:46→23:51)
[2020-07-03] MEDS ORDERED: Insulin LISPRO 300 UNITS/3 ML VIAL SUBQ SCH (21:00)
[2020-07-03] MEDS ORDERED: Vancomycin 1,500 MG/265 ML IV.SOLN IVPB SCH (23:00)
[2020-07-04 04:41] LABS: Basophils % 0.5 %; Eosinophils # 0.4 K/mcL (0.0-0.6); Eosinophils % 4.2 %; Hematocrit 32.5 % (37.5-50.1); Hemoglobin 10.6 g/dL (12.9-16.9); Immature Granulocytes % 0.2 % (0-4); Lymphocytes # 1.3 K/mcL (0.6-4.6); Lymphocytes % 14.2 %; Mean Corpuscular HGB Conc 32.6 g/dL (31.6-35.5); Mean Corpuscular Hemoglobin 29.9 pg (28.0-33.3); Mean Corpuscular Volume 91.5 fL (83.0-100.0); Mean Platelet Volume 10.9 fL (9.4-12.4); Monocytes # 0.9 K/mcL (0.0-1.3); Monocytes % 9.9 %; Neutrophils # 6.3 K/mcL (1.6-8.9); Platelet Count 228 K/mcL (140-400); Red Blood Count 3.55 M/mcL (4.19-5.50); Red Cell Distribution Width 12.7 % (11.5-14.5); White Blood Count 8.8 K/mcL (4.3-11.1)
[2020-07-04 05:02] LABS: BUN/Creatinine Ratio 17 (6-26); Blood Urea Nitrogen 12 mg/dL (8-23); Calcium 8.5 mg/dL (8.6-10.3); Carbon Dioxide 24 mEq/L (23-29); Chloride 101 mEq/L (98-107); Glucose 295 mg/dL (70-105); Osmolality,Calculated 289 (280-300); Potassium 4.3 mEq/L (3.5-5.1); Sodium 134 mEq/L (136-145); eGFR For African Americans > 60 (> 60); eGFR For Non-African Americans > 60 (> 60)
[2020-07-04 05:51] LABS: Estimated Average Glucose 283 mg/dl; Hemoglobin A1C 11.5 %
[2020-07-04] MEDS: (Fish Oil 1,000 Mg Softgel) PO SCH (08:27)
[2020-07-04] MEDS: Insulin LISPRO 300 UNITS/3 ML VIAL SUBQ SCH ×4 (08:28→17:10)
[2020-07-04] MEDS: Aspirin 325 MG TABLET PO SCH (09:57)
[2020-07-04] MEDS: Gabapentin 400 MG CAPSULE PO SCH ×2 (09:58→20:05)
[2020-07-04] MEDS: Cholecalciferol (D-3) 1,000 UNIT (25MCG) TABLET PO SCH (09:58)
[2020-07-04] MEDS: Famotidine 20 MG TABLET PO SCH ×2 (09:59→20:05)
[2020-07-04] MEDS: Baclofen 10 MG TABLET PO SCH ×3 (09:59→20:05)
[2020-07-04] MEDS: Ranolazine 500 MG TAB.ER.12H PO SCH ×2 (09:59→20:06)
[2020-07-04] MEDS: Magnesium Oxide 400 MG TABLET PO SCH (09:59)
[2020-07-04] MEDS: Loratadine 10 MG TABLET PO SCH (09:59)
[2020-07-04] MEDS: Isosorbide MONOnitrate (24 HR) 30 MG TAB.ER.24H PO SCH ×2 (09:59→20:05)
[2020-07-04] MEDS: Cyanocobalamin (B-12) 1,000 MCG TABLET PO SCH (10:00)
[2020-07-04] MEDS: Metoprolol XL (24 HR) Succ 50 MG TAB.ER.24H PO SCH (10:00)
[2020-07-04] MEDS: Piperacillin/Tazobactam 3.375 GM in 0.9 % Sodium Chloride Mini Bag 100 ML IVPB SCH ×3 (10:07→23:23)
[2020-07-04] MEDS: Vancomycin 1,750 MG/517.5 ML IV.SOLN IVPB SCH ×2 (11:04→23:23)
[2020-07-04] MEDS ORDERED: traZODone 50 MG TABLET PO PRN (12:55)
[2020-07-04] MEDS ORDERED: Methyl Salicylate/Menthol 85 APPL/85 GM TUBE TP PRN (12:58)
[2020-07-04] MEDS: *HR* HYDROcodone/Acet 5/325 mg TABLET PO PRN (13:43)
[2020-07-04] MEDS ORDERED: Methyl Salicylate/Menthol 57 APPL/57 GM TUBE TP PRN (13:45)
[2020-07-04] MEDS ORDERED: Insulin DETEMIR 100 UNIT/ML X5UNITS SUBQ SCH ×2 (21:00)
[2020-07-05 01:27] LABS: Basophils % 0.5 %; Eosinophils # 0.4 K/mcL (0.0-0.6); Eosinophils % 5.1 %; Hematocrit 31.7 % (37.5-50.1); Hemoglobin 10.1 g/dL (12.9-16.9); Immature Granulocytes % 0.2 % (0-4); Lymphocytes # 1.3 K/mcL (0.6-4.6); Lymphocytes % 15.6 %; Mean Corpuscular HGB Conc 31.9 g/dL (31.6-35.5); Mean Corpuscular Hemoglobin 29.7 pg (28.0-33.3); Mean Corpuscular Volume 93.2 fL (83.0-100.0); Mean Platelet Volume 11.2 fL (9.4-12.4); Monocytes # 0.8 K/mcL (0.0-1.3); Neutrophils # 5.5 K/mcL (1.6-8.9); Platelet Count 215 K/mcL (140-400); Red Cell Distribution Width 12.8 % (11.5-14.5); Segmented Neutrophils % 68.6 %
[2020-07-05 01:46] LABS: BUN/Creatinine Ratio 14 (6-26); Blood Urea Nitrogen 12 mg/dL (8-23); Calcium 8.6 mg/dL (8.6-10.3); Carbon Dioxide 27 mEq/L (23-29); Chloride 102 mEq/L (98-107); Glucose 270 mg/dL (70-105); Osmolality,Calculated 291 (280-300); Potassium 4.3 mEq/L (3.5-5.1); Sodium 136 mEq/L (136-145); eGFR For African Americans > 60 (> 60); eGFR For Non-African Americans > 60 (> 60)
[2020-07-05] MEDS ORDERED: Aspirin 81 MG TAB.CHEW PO SCH (09:00)
[2020-07-05] MEDS: Loratadine 10 MG TABLET PO SCH (09:01)
[2020-07-05] MEDS: Ranolazine 500 MG TAB.ER.12H PO SCH (09:02)
[2020-07-05] MEDS: Cholecalciferol (D-3) 1,000 UNIT (25MCG) TABLET PO SCH (09:03)
[2020-07-05] MEDS: Famotidine 20 MG TABLET PO SCH (09:04)
[2020-07-05] MEDS: Metoprolol XL (24 HR) Succ 50 MG TAB.ER.24H PO SCH (09:05)
[2020-07-05] MEDS: Baclofen 10 MG TABLET PO SCH ×2 (09:06→15:14)
[2020-07-05] MEDS: Cyanocobalamin (B-12) 1,000 MCG TABLET PO SCH (09:07)
[2020-07-05] MEDS: *HR* HYDROcodone/Acet 5/325 mg TABLET PO PRN ×2 (09:08→15:13)
[2020-07-05] MEDS: Magnesium Oxide 400 MG TABLET PO SCH (09:08)
[2020-07-05] MEDS: Gabapentin 400 MG CAPSULE PO SCH (09:09)
[2020-07-05] MEDS: Isosorbide MONOnitrate (24 HR) 30 MG TAB.ER.24H PO SCH (09:09)
[2020-07-05] MEDS: Piperacillin/Tazobactam 3.375 GM in 0.9 % Sodium Chloride Mini Bag 100 ML IVPB SCH ×2 (09:11→15:15)
[2020-07-05] MEDS: Insulin LISPRO 300 UNITS/3 ML VIAL SUBQ SCH ×4 (09:13→12:01)
[2020-07-05] MEDS: Vancomycin 1,750 MG/517.5 ML IV.SOLN IVPB SCH (11:54)
[2020-07-05 15:25] VITALS: BP 135/64
== END 2020-07-05 18:10 | disposition left against medical advice (07) | DRG 300 ==
LOC: 3NENU 19:49 → EMEROOARM 19:49 → SUATTDRO 23:36 → 3NENU 07-03 00:13
PROVIDERS: ADMIT Student in an Organized Health Care Education/Training Program; ATTEND Student in an Organized Health Care Education/Training Program

== ENCOUNTER 2020-10-07 04:54 | Observation (INO) ==
[2020-10-07] MEDS ORDERED: Aspirin 81 MG TAB.CHEW PO ONE (05:06)
[2020-10-07] MEDS ORDERED: Ondansetron 4 MG/2 ML VIAL IVP ONE (05:07)
[2020-10-07] MEDS ORDERED: *HR* FentaNYL (PF) 100 MCG/2 ML VIAL IVP ONE (05:08)
[2020-10-07] MEDS ORDERED: Isovue-370 500 ML BOTTLE IVP ONE (05:52)
[2020-10-07] MEDS: 0.9 % Sodium Chloride 1,000 ML IVC SCH ×3 (06:00→21:52)
[2020-10-07 06:15] LABS: Basophils % 0.4 %; Eosinophils # 0.6 K/mcL (0.0-0.6); Eosinophils % 7.2 %; Hematocrit 27.5 % (37.5-50.1); Immature Granulocytes % 0.4 % (0-4); Mean Corpuscular HGB Conc 32.7 g/dL (31.6-35.5); Mean Corpuscular Hemoglobin 28.3 pg (28.0-33.3); Mean Corpuscular Volume 86.5 fL (83.0-100.0); Mean Platelet Volume 11.7 fL (9.4-12.4); Monocytes # 0.6 K/mcL (0.0-1.3); Monocytes % 8.1 %; Neutrophils # 5.7 K/mcL (1.6-8.9); Platelet Count 195 K/mcL (140-400); Red Blood Count 3.18 M/mcL (4.19-5.50); Red Cell Distribution Width 16.3 % (11.5-14.5); Segmented Neutrophils % 71.9 %; White Blood Count 7.9 K/mcL (4.3-11.1)
[2020-10-07 06:24] LABS: INR 1.4; Prothrombin Time 15.6 Seconds (9.4-12.1)
[2020-10-07 06:26] LABS: Activated Partial Thrombo Time 30.9 Seconds (26.0-36.0)
[2020-10-07 06:34] LABS: Alanine Aminotransferase 23 Units/L (7-52); Albumin 3.5 g/dL (3.5-5.7); Albumin/Globulin Ratio 1.1 (1.1-2.2); Alkaline Phosphatase 85 Units/L (34-104); Aspartate Amino Transferase 24 Units/L (13-39); BUN/Creatinine Ratio 24 (6-26); Bilirubin,Direct 0.1 mg/dL (0.0-0.2); Bilirubin,Indirect 0.3 mg/dL (0.0-1.0); Bilirubin,Total 0.4 mg/dL (0.3-1.0); Blood Urea Nitrogen 18 mg/dL (8-23); Calcium 8.7 mg/dL (8.6-10.3); Carbon Dioxide 25 mEq/L (23-29); Chloride 104 mEq/L (98-107); Globulin 3.2 g/dL (2.4-3.5); Glucose 222 mg/dL (70-105); Lipase 24 Units/L (11-82); Osmolality,Calculated 293 (280-300); Potassium 4.5 mEq/L (3.5-5.1); Sodium 137 mEq/L (136-145); Total Protein 6.7 g/dL (6.4-8.9); Troponin I < 0.03 ng/mL (< 0.04); eGFR For African Americans > 60 (> 60); eGFR For Non-African Americans > 60 (> 60)
[2020-10-07] MEDS ORDERED: methylPREDNISolone 125 MG/2 ML VIAL IVP ONE (06:55)
[2020-10-07] MEDS ORDERED: *HR* HYDROmorphone (PF) 1 MG/ML SYRINGE IVP ONE (08:58)
[2020-10-07 09:51] LABS: Bilirubin,Urine Negative (Negative); Blood,Urine Negative (Negative); Clarity,Urine Clear (Clear); Color,Urine Light-Yellow (Yellow); Glucose,Urine (UA) 30 mg/dL (Normal); Ketones,Urine Negative (Negative); Leukocyte Esterase,Urine Negative (Negative); Nitrite,Urine Negative (Negative); PH,Urine 6.5 pH Units (5.0-8.0); Protein,Urine Trace mg/dL (Neg-Trace); RBC,Urine 0-3 per hpf (0-3); Specific Gravity,Urine > 1.030 (1.010-1.025); Squamous Epithelial Cell,Urine Few per hpf (None-Few); Urobilinogen,Urine Normal (Normal); WBC,Urine 0-3 per hpf (0-3)
[2020-10-07] MEDS ORDERED: Furosemide 40 MG in 0.9 % Sodium Chloride 50 ML IVPB ONE (10:20)
[2020-10-07] MEDS ORDERED: Mag Hydrox/Al Hydrox/Simeth 30 ML UDC PO PRN (10:50)
[2020-10-07] MEDS ORDERED: MOM Conc 10 ML UD.LIQ PO PRN (10:50)
[2020-10-07] MEDS ORDERED: Ondansetron 4 MG/2 ML VIAL IVP PRN (10:50)
[2020-10-07] MEDS ORDERED: Naloxone 0.4 MG/ML INJ IVP PRN (10:50)
[2020-10-07] MEDS ORDERED: Perflutren Lipid Microsphere 1.3 ML in 0.9 % Sodium Chloride 8.7 ML IVP PRN (10:56)
[2020-10-07] MEDS: *HR* FentaNYL (PF) 100 MCG/2 ML VIAL IVP PRN ×2 (16:37→22:25)
[2020-10-07] MEDS ORDERED: Dextrose Gel 15 GM/37.5 ML TUBE PO PRN ×2 (18:26)
[2020-10-07] MEDS ORDERED: D5% in Water 1,000 ML IVC PRN (18:26)
[2020-10-07] MEDS ORDERED: *HR* Dextrose 50 % in Water (Vial) 50 ML VIAL IVP PRN (18:26)
[2020-10-07] MEDS ORDERED: Vancomycin 1,500 MG/265 ML IV.SOLN IVPB ONE (19:00)
[2020-10-07 19:17] LABS: Troponin I < 0.03 ng/mL (< 0.04)
[2020-10-07] MEDS: Ertapenem 1,000 MG in 0.9 % Sodium Chloride Mini Bag 100 ML IVPB SCH (19:48)
[2020-10-07 19:59] LABS: Vancomycin,Random 8 mcg/mL
[2020-10-07] MEDS: Insulin DETEMIR 100 UNIT/ML X5UNITS SUBQ SCH (20:49)
[2020-10-07] MEDS: Apixaban 5 MG TABLET PO SCH (20:49)
[2020-10-07] MEDS: Gabapentin 300 MG CAPSULE PO SCH (20:49)
[2020-10-07] MEDS ORDERED: Insulin LISPRO 300 UNITS/3 ML VIAL SUBQ SCH (21:00)
[2020-10-07] MEDS ORDERED: Insulin LISPRO 300 UNITS/3 ML VIAL SUBQ ONE (21:51)
[2020-10-07] MEDS: Vancomycin 1,250 MG/262.5 ML IV.SOLN IVPB SCH (22:11)
[2020-10-08] MEDS: Insulin LISPRO 300 UNITS/3 ML VIAL SUBQ SCH ×6 (00:05→19:57)
[2020-10-08] MEDS ORDERED: traZODone 50 MG TABLET PO PRN ×2 (00:43→15:23)
[2020-10-08 05:21] LABS: Hematocrit 26.3 % (37.5-50.1); Hemoglobin 8.5 g/dL (12.9-16.9); Mean Corpuscular HGB Conc 32.3 g/dL (31.6-35.5); Mean Corpuscular Hemoglobin 27.6 pg (28.0-33.3); Mean Corpuscular Volume 85.4 fL (83.0-100.0); Mean Platelet Volume 11.3 fL (9.4-12.4); Platelet Count 196 K/mcL (140-400); Red Blood Count 3.08 M/mcL (4.19-5.50); Red Cell Distribution Width 16.3 % (11.5-14.5); White Blood Count 5.3 K/mcL (4.3-11.1)
[2020-10-08] MEDS: *HR* FentaNYL (PF) 100 MCG/2 ML VIAL IVP PRN ×3 (05:21→20:03)
[2020-10-08 05:42] LABS: BUN/Creatinine Ratio 21 (6-26); Blood Urea Nitrogen 18 mg/dL (8-23); Calcium 8.2 mg/dL (8.6-10.3); Carbon Dioxide 23 mEq/L (23-29); Chloride 104 mEq/L (98-107); Glucose 211 mg/dL (70-105); Magnesium 1.8 mg/dL (1.6-2.6); Osmolality,Calculated 288 (280-300); Potassium 4.3 mEq/L (3.5-5.1); Sodium 135 mEq/L (136-145); eGFR For African Americans > 60 (> 60); eGFR For Non-African Americans > 60 (> 60)
[2020-10-08] MEDS ORDERED: *HR* Enoxaparin 40 MG/0.4 ML SYRINGE SQ SCH (07:00)
[2020-10-08] MEDS ORDERED: Insulin LISPRO 300 UNITS/3 ML VIAL SUBQ SCH (07:30)
[2020-10-08] MEDS: Apixaban 5 MG TABLET PO SCH ×2 (07:46→19:56)
[2020-10-08] MEDS: Gabapentin 300 MG CAPSULE PO SCH ×2 (07:46→12:30)
[2020-10-08] MEDS: Ertapenem 1,000 MG in 0.9 % Sodium Chloride Mini Bag 100 ML IVPB SCH (07:46)
[2020-10-08] MEDS: 0.9 % Sodium Chloride 1,000 ML IVC SCH (07:47)
[2020-10-08] MEDS: Vancomycin 1,250 MG/262.5 ML IV.SOLN IVPB SCH ×2 (09:46→20:03)
[2020-10-08] MEDS ORDERED: Perflutren Lipid Microsphere 1.3 ML in 0.9 % Sodium Chloride 8.7 ML IVP PRN (11:42)
[2020-10-08] MEDS: Metoprolol XL (24 HR) Succ 50 MG TAB.ER.24H PO SCH (12:30)
[2020-10-08] MEDS: Magnesium Oxide 400 MG TABLET PO SCH (12:30)
[2020-10-08] MEDS: Aspirin Enteric Coated 81 MG Tablet PO SCH (12:31)
[2020-10-08] MEDS ORDERED: Ketorolac 15 MG/ML VIAL IVP ONE (12:37)
[2020-10-08] MEDS ORDERED: Magnesium Sulfate 1 GM/102 ML PIGGYBACK IVPB ONE (15:22)
[2020-10-08] MEDS ORDERED: Gabapentin 300 MG CAPSULE PO PRN (15:44)
[2020-10-08] MEDS ORDERED: Mag Hydrox/Al Hydrox/Simeth 30 ML UDC PO PRN (17:51)
[2020-10-08 19:02] LABS: Adenovirus Not Detected (Not Detect); Bordetella Pertussis Not Detected (Not Detect); Chlamydophila pneumoniae Not Detected (Not Detect); Coronavirus 229E Not Detected (Not Detect); Coronavirus HKU1 Not Detected (Not Detect); Coronavirus NL63 Not Detected (Not Detect); Coronavirus OC43 Not Detected (Not Detect); Human Metapneumovirus Not Detected (Not Detect); Human Rhinovirus/Enterovirus Not Detected (Not Detect); Influenza A Subtype 2009 H1 Not Detected (Not Detect); Influenza B Not Detected (Not Detect); Mycoplasma pneumoniae Not Detected (Not Detect); Parainfluenza Virus 1 Not Detected (Not Detect); Parainfluenza Virus 2 Not Detected (Not Detect); Parainfluenza Virus 3 Not Detected (Not Detect); Parainfluenza Virus 4 Not Detected (Not Detect); Respiratory Syncytial Virus Not Detected (Not Detect); SARS-CoV-2 Not Detected (Not Detect)
[2020-10-08] MEDS: Ranolazine 500 MG TAB.ER.12H PO SCH (19:56)
[2020-10-08] MEDS: Baclofen 10 MG TABLET PO PRN (19:56)
[2020-10-08] MEDS: Insulin DETEMIR 100 UNIT/ML X5UNITS SUBQ SCH (20:02)
[2020-10-08] MEDS ORDERED: Insulin LISPRO 300 UNITS/3 ML VIAL SUBQ ONE (21:29)
[2020-10-09] MEDS: Insulin LISPRO 300 UNITS/3 ML VIAL SUBQ SCH ×4 (01:04→16:31)
[2020-10-09 03:56] LABS: Basophils % 0.5 %; Eosinophils # 0.2 K/mcL (0.0-0.6); Eosinophils % 2.4 %; Hematocrit 26.5 % (37.5-50.1); Immature Granulocytes % 0.2 % (0-4); Lymphocytes # 1.3 K/mcL (0.6-4.6); Lymphocytes % 20.9 %; Mean Corpuscular HGB Conc 30.2 g/dL (31.6-35.5); Mean Corpuscular Hemoglobin 26.8 pg (28.0-33.3); Mean Corpuscular Volume 88.6 fL (83.0-100.0); Mean Platelet Volume 12.1 fL (9.4-12.4); Monocytes # 0.5 K/mcL (0.0-1.3); Monocytes % 8.8 %; Neutrophils # 4.2 K/mcL (1.6-8.9); Platelet Count 180 K/mcL (140-400); Red Blood Count 2.99 M/mcL (4.19-5.50); Red Cell Distribution Width 16.5 % (11.5-14.5); Segmented Neutrophils % 67.2 %; White Blood Count 6.2 K/mcL (4.3-11.1)
[2020-10-09 04:12] LABS: BUN/Creatinine Ratio 26 (6-26); Blood Urea Nitrogen 19 mg/dL (8-23); Calcium 8.2 mg/dL (8.6-10.3); Carbon Dioxide 22 mEq/L (23-29); Chloride 106 mEq/L (98-107); Glucose 170 mg/dL (70-105); Osmolality,Calculated 288 (280-300); Potassium 4.3 mEq/L (3.5-5.1); Sodium 136 mEq/L (136-145); eGFR For African Americans > 60 (> 60); eGFR For Non-African Americans > 60 (> 60)
[2020-10-09] MEDS: *HR* FentaNYL (PF) 100 MCG/2 ML VIAL IVP PRN ×2 (04:52→11:21)
[2020-10-09] MEDS: Metoprolol XL (24 HR) Succ 50 MG TAB.ER.24H PO SCH (07:52)
[2020-10-09] MEDS: Ranolazine 500 MG TAB.ER.12H PO SCH (07:52)
[2020-10-09] MEDS: Aspirin Enteric Coated 81 MG Tablet PO SCH (07:52)
[2020-10-09] MEDS: Apixaban 5 MG TABLET PO SCH (07:53)
[2020-10-09] MEDS: Magnesium Oxide 400 MG TABLET PO SCH (07:53)
[2020-10-09] MEDS: Ertapenem 1,000 MG in 0.9 % Sodium Chloride Mini Bag 100 ML IVPB SCH (07:53)
[2020-10-09] MEDS ORDERED: lisinopriL 5 MG TABLET PO SCH (09:00)
[2020-10-09] MEDS ORDERED: Furosemide 40 MG TABLET PO SCH (09:00)
[2020-10-09] MEDS ORDERED: *HR* Amiodarone 200 MG TABLET PO SCH (09:00)
[2020-10-09] MEDS ORDERED: Isosorbide MONOnitrate (24 HR) 30 MG TAB.ER.24H PO SCH (09:00)
[2020-10-09] MEDS: Vancomycin 1,250 MG/262.5 ML IV.SOLN IVPB SCH (11:22)
[2020-10-09] MEDS: Baclofen 10 MG TABLET PO PRN (11:39)
[2020-10-09] MEDS ORDERED: *HR* HYDROcodone/Acet 5/325 mg TABLET PO PRN (11:45)
[2020-10-09] MEDS: Gabapentin 300 MG CAPSULE PO SCH ×2 (12:45→16:31)
[2020-10-09] MEDS ORDERED: Baclofen 10 MG TABLET PO SCH (15:00)
[2020-10-09 15:18] VITALS: BP 111/62
[2020-10-09] MEDS ORDERED: Insulin LISPRO 300 UNITS/3 ML VIAL SUBQ SCH (21:00)
== END 2020-10-09 19:06 | disposition home health service (06) ==
LOC: 2NENU 04:54 → EMEROOARM 04:54 → SUATTDRO 10:46 → 2NENU 11:22
PROVIDERS: ADMIT Internal Medicine; ATTEND Student in an Organized Health Care Education/Training Program